=== PATIENT | female | born 1965 | race Caucasian/White ===

== ENCOUNTER 2017-12-07 12:40 | Emergency (ER) | payer MEDICAID, OTHER ==
[~2017-12-07] VITALS: Ht 165.1 cm; Wt 80.0 kg
[~2017-12-07 12:40] MED LIST: ADDE30TA PO; ARIP30 PO; CYMB60CA PO; IBUP-238 PO; TRAZ150T75 PO
[2017-12-07 12:45] VITALS: BP 182/90; PULSE 98; RESP 17; TEMP 98.7; O2SAT 100
[2017-12-07] MEDS ORDERED: ADDE30XR PO (13:08)
[2017-12-07] MEDS ORDERED: LISI10TA3 PO (13:08)
[2017-12-07] MEDS ORDERED: RANI300C PO (13:08)
--- NOTE | 2017-12-07 13:47 | PD ---
HPI Chief Complaint: Psychiatric Symptoms Time Seen by Provider: 13:38 Travel History International Travel<30 days: No Contact w/Intl Traveler<30days: No Traveled to known affect area: No History of Present Illness HPI 52-year-old female brought in under the [place] act for suicidal ideation by police. Patient states takes lisinopril for high blood pressure. He states he was to jump off the local originating we do ears, prevent her from doing that. She denies any other current medical issues. Patient is not very cooperative with questioning or exam. Allergic to codeine. PFSH Past Medical History Blood Disorders: No Anxiety: Yes Depression: Yes Cancer: Yes ("LIVER") Cardiovascular Problems: No Diabetes: No Diminished Hearing: No Endocrine: No Gastrointestinal Disorders: No Genitourinary: No Headaches: Yes Immune Disorder: No Implanted Vascular Access Dvce: No Musculoskeletal: No Neurologic: No Psychiatric: Yes Reproductive: No Respiratory: No ?: Not Menopausal: Yes : 6 Para: 3 Miscarriage: 1 : 2 Tubal Ligation: Yes Past Surgical History Gynecologic Surgery: Yes (TUBES TIED) Neurologic Surgery: Yes Social History Alcohol Use: Yes ("[place]" DAILY) Tobacco Use: Yes (1 PPD) Substance Use: Yes Allergies-Medications (Allergen,Severity, Reaction): Coded Allergies: codeine (Unverified Allergy, Severe, N/V, 12/07/17) Reported Meds & Prescriptions Reported Meds & Active Scripts Active Reported Ranitidine (Ranitidine HCl) 300 Mg Cap 300 Mg PO DAILY Lisinopril 10 Mg Tab 10 Mg PO DAILY Adderall Xr 24 HR (Amphetamine/Dextroamphetamine) 30 Mg Cap 30 Mg PO DAILY Once daily in the morning. Review of Systems ROS Limitations: Uncooperative, Refused, Combative General / Constitutional: No: Fever Eyes: No: Visual changes HENT: No: Headaches Cardiovascular: No: Chest Pain or Discomfort Respiratory: No: Shortness of Breath Gastrointestinal: No: Abdominal Pain Genitourinary: No: Dysuria Musculoskeletal: No: Pain Skin: No Rash Neurologic: No: Weakness Psychiatric: No: Depression Endocrine: No: Polydipsia Hematologic/Lymphatic: No: Easy Bruising Physical Exam Exam Limitations: Uncooperative, Refused, Combative Narrative GENERAL: Patient is tearful and frustrated as well as somewhat verbally combative. SKIN: Warm and dry. No obvious signs of trauma. HEAD: Atraumatic. Normocephalic. EYES: Pupils equal and round. No scleral icterus. No injection or drainage. ENT: No nasal bleeding or discharge. Mucous membranes pink and moist. Pharynx is clear NECK: Trachea midline. Supple CARDIOVASCULAR: Regular rate and rhythm. RESPIRATORY: No accessory muscle use. MUSCULOSKELETAL: Extremities without clubbing, cyanosis, or edema. No obvious deformities. NEUROLOGICAL: Awake and alert. No obvious cranial nerve deficits. Motor grossly within normal limits. Five out of 5 muscle strength in the arms and legs. Normal speech. PSYCHIATRIC: Appropriate mood and affect; insight and judgment normal. Data Data Last Documented VS Vital Signs Date Time Temp Pulse Resp B/P (MAP) Pulse Ox O2 Delivery O2 Flow Rate FiO2 12/07/17 12:45 98.7 98 17 182/90 (120) 100 Orders Orders Complete Blood Count With Diff (12/07/17 13:39) Comprehensive Metabolic Panel (12/07/17 13:39) Thyroid Stimulating Hormone (12/07/17 13:39) Urinalysis - C+S If Indicated (12/07/17 13:39) Psych Screen (12/07/17 13:39) Drug Screen, Random Urine (12/07/17 13:39) Alcohol (Ethanol) (12/07/17 13:39) MDM Medical Decision Making Medical Screen Exam Complete: Yes Emergency Medical Condition: Yes Medical Record Reviewed: Yes Differential Diagnosis [place]. Suicidal ideation. Depression. Narrative Course Patient is partially cooperative with history and exam. Psychiatric labs were ordered per protocol. Patient refuses all labs, but I feel that she is medically stable to go to [facility] at this time. Psych screen is ordered. Patient is medically cleared for psychiatric evaluation. Condition: Stable Urban Mckenna Dec 07, 2017 13:47
[2017-12-07 17:39] LABS: BASOPHIL % 0.6 % (0.0-2.0); EOSINOPHIL # 0.1 TH/MM3 (0-0.4); EOSINOPHIL % 1.4 % (0.0-4.0); HEMATOCRIT 41.5 % (35.0-46.0); HEMOGLOBIN 14.9 GM/DL (11.6-15.3); LYMPH % 42.3 % (9.0-44.0); LYMPHOCYTE # 3.4 TH/MM3 (1.0-4.8); MEAN CORPUSCULAR HEMOGLOBIN 33.9 PG (27.0-34.0); MEAN PLATELET VOLUME 7.7 FL (7.0-11.0); MONOCYTE # 0.6 TH/MM3 (0-0.9); NEUT % 48.7 % (16.0-70.0); PLATELET COUNT 279 TH/MM3 (150-450); RED BLOOD COUNT 4.41 MIL/MM3 (4.00-5.30); WHITE BLOOD COUNT 8.1 TH/MM3 (4.0-11.0)
[2017-12-07 17:56] LABS: ALBUMIN 3.4 GM/DL (3.4-5.0); ALT (GPT) 32 U/L (10-53); AST (GOT) 34 U/L (15-37); BICARBONATE 29.1 MEQ/L (21.0-32.0); BLOOD UREA NITROGEN 6 MG/DL (7-18); CALCIUM 8.2 MG/DL (8.5-10.1); CHLORIDE 108 MEQ/L (98-107); CREATININE 0.56 MG/DL (0.50-1.00); GLOMERULAR FILTRATION RATE 114 ML/MIN (>89); GLUCOSE,RANDOM 171 MG/DL (74-106); SODIUM (NA) 145 MEQ/L (136-145)
[2017-12-07 18:00] VITALS: BP 156/84; PULSE 80; RESP 16; TEMP 97.8; O2SAT 95
[2017-12-07 18:06] LABS: ALKALINE PHOSPHATASE 139 U/L (45-117); TOTAL BILIRUBIN ADULT 0.2 MG/DL (0.2-1.0); TOTAL PROTEIN 7.3 GM/DL (6.4-8.2)
[2017-12-07 20:34] VITALS: BP 181/90; PULSE 101; TEMP 98.8; O2SAT 95
[2017-12-07] MEDS ORDERED: POTASSIUM CHLORIDE 20 MEQ CONTROLLED RELEASE TAB PO ONE (23:15)
[2017-12-07 23:58] VITALS: BP 214/110; PULSE 88; RESP 18; TEMP 98.2; O2SAT 95
[2017-12-08] MEDS ORDERED: cloNIDine HCL 0.1 MG TAB PO ONE (00:15)
[2017-12-08] MEDS ORDERED: LISINOPRIL 10 MG TAB PO ONE (00:15)
[2017-12-08] MEDS ORDERED: POTASSIUM CHLORIDE 20 MEQ CONTROLLED RELEASE TAB PO ONE (01:00)
[2017-12-08 01:39] VITALS: BP 218/100; PULSE 78; RESP 18; O2SAT 95
[2017-12-08] MEDS ORDERED: LORazepam 2 MG/ML VIAL IM ONE (01:45)
[2017-12-08] MEDS ORDERED: ACETAMINOPHEN 325 MG TAB PO ONE (01:45)
[2017-12-08] MEDS ORDERED: cloNIDine HCL 0.2 MG TAB PO ONE (01:45)
[2017-12-08] MEDS ORDERED: ONDANSETRON ODT 4 MG TAB PO ONE (01:45)
[2017-12-08] MEDS ORDERED: PROMETHAZINE INJ 25 MG/ML VIAL IM ONE (01:45)
--- NOTE | 2017-12-08 01:46 | PD ---
Physical Exam Date Seen by Provider: Dec 08, 2017 Time Seen by Provider: 01:44 Data Data Last Documented VS Vital Signs Date Time Temp Pulse Resp B/P (MAP) Pulse Ox O2 Delivery O2 Flow Rate FiO2 12/08/17 01:39 78 18 () 95 Room Air 218/100 (139) 12/07/17 23:58 98.2 Orders Orders Psych Screen (12/07/17 13:39) Diet Regular Basic (12/07/17 Dinner) Complete Blood Count With Diff (12/07/17 17:08) Comprehensive Metabolic Panel (12/07/17 17:08) Thyroid Stimulating Hormone (12/07/17 17:08) Ed Urine Pregnancytest Poc (12/07/17 17:08) Drug Screen, Random Urine (12/07/17 17:08) Alcohol (Ethanol) (12/07/17 17:08) Potassium Chloride (Kcl) (12/07/17 23:15) Potassium Chloride (Kcl) (12/08/17 01:00) Clonidine (Catapres) (12/08/17 00:15) Lisinopril (Prinivil) (12/08/17 00:15) Lisinopril (Prinivil) (12/08/17 09:00) Diet Regular Basic (12/08/17 Breakfast) Ondansetron Odt (Zofran Odt) (12/08/17 01:45) Acetaminophen (Tylenol) (12/08/17 01:45) Lorazepam Inj (Ativan Inj) (12/08/17 01:45) Clonidine (Catapres) (12/08/17 01:45) Promethazine Inj (Phenergan Inj) (12/08/17 01:45) Labs Laboratory Tests Test 12/07/17 17:15 12/07/17 20:31 White Blood Count 8.1 TH/MM3 Red Blood Count 4.41 MIL/MM3 Hemoglobin 14.9 GM/DL Hematocrit 41.5 % Mean Corpuscular Volume 94.0 FL Mean Corpuscular Hemoglobin 33.9 PG Mean Corpuscular Hemoglobin Concent 36.0 % Red Cell Distribution Width 13.0 % Platelet Count 279 TH/MM3 Mean Platelet Volume 7.7 FL Neutrophils (%) (Auto) 48.7 % Lymphocytes (%) (Auto) 42.3 % Monocytes (%) (Auto) 7.0 % Eosinophils (%) (Auto) 1.4 % Basophils (%) (Auto) 0.6 % Neutrophils # (Auto) 4.0 TH/MM3 Lymphocytes # (Auto) 3.4 TH/MM3 Monocytes # (Auto) 0.6 TH/MM3 Eosinophils # (Auto) 0.1 TH/MM3 Basophils # (Auto) 0.0 TH/MM3 CBC Comment AUTO DIFF Differential Comment AUTO DIFF CONFIRMED Blood Urea Nitrogen 6 MG/DL Creatinine 0.56 MG/DL Random Glucose 171 MG/DL Total Protein 7.3 GM/DL Albumin 3.4 GM/DL Calcium Level 8.2 MG/DL Alkaline Phosphatase 139 U/L Aspartate Amino Transf (AST/SGOT) 34 U/L Alanine Aminotransferase (ALT/SGPT) 32 U/L Total Bilirubin 0.2 MG/DL Sodium Level 145 MEQ/L Potassium Level 3.0 MEQ/L Chloride Level 108 MEQ/L Carbon Dioxide Level 29.1 MEQ/L Anion Gap 8 MEQ/L Estimat Glomerular Filtration Rate 114 ML/MIN Thyroid Stimulating Hormone 3rd Gen 0.456 uIU/ML Ethyl Alcohol Level 190 MG/DL Urine Opiates Screen NEG Urine Barbiturates Screen NEG Urine Amphetamines Screen NEG Urine Benzodiazepines Screen NEG Urine Cocaine Screen NEG Urine Cannabinoids Screen NEG MDM Medical Record Reviewed: Yes Supervised Visit with ACE: No Narrative Course I was asked to treat the patient's hypertension and hypokalemia. She had been given p.o. potassium and lisinopril The patient has vomited approximately 1-1/2 hours later. She still has elevated blood pressure. She will be given 25 mg of Phenergan IM, Ativan 1 mg IM, and clonidine 0.2 mg p.o. Condition: Stable Kevin Young Dec 08, 2017 01:46
[2017-12-08 04:34] VITALS: BP 118/65; PULSE 74; RESP 17; TEMP 98.4; O2SAT 95
[2017-12-08 05:38] VITALS: BP 121/63; PULSE 72; RESP 17; TEMP 99; O2SAT 98
[2017-12-08] MEDS ORDERED: LISINOPRIL 10 MG TAB PO SCH (09:00)
[2017-12-08 09:04] VITALS: BP 154/82; PULSE 72; RESP 16; TEMP 98.8; O2SAT 97
[2017-12-08 12:35] VITALS: BP 133/78; PULSE 88; RESP 16; O2SAT 97
--- NOTE | 2017-12-08 12:57 | PD ---
Physical Exam Date Seen by Provider: Dec 08, 2017 Time Seen by Provider: 12:56 Narrative 52-year-old female patient previously medically cleared for psychiatric evaluation has been seen by psychiatric services and felt to be worthy of transfer to [facility]. Patient remains medically stable at this time. Data Data Last Documented VS Vital Signs Date Time Temp Pulse Resp B/P (MAP) Pulse Ox O2 Delivery O2 Flow Rate FiO2 12/08/17 12:35 88 16 133/78 (96) 97 12/08/17 09:04 98.8 12/08/17 05:38 Room Air Orders Orders Psych Screen (12/07/17 13:39) Diet Regular Basic (12/07/17 Dinner) Complete Blood Count With Diff (12/07/17 17:08) Comprehensive Metabolic Panel (12/07/17 17:08) Thyroid Stimulating Hormone (12/07/17 17:08) Ed Urine Pregnancytest Poc (12/07/17 17:08) Drug Screen, Random Urine (12/07/17 17:08) Alcohol (Ethanol) (12/07/17 17:08) Potassium Chloride (Kcl) (12/07/17 23:15) Potassium Chloride (Kcl) (12/08/17 01:00) Clonidine (Catapres) (12/08/17 00:15) Lisinopril (Prinivil) (12/08/17 00:15) Lisinopril (Prinivil) (12/08/17 09:00) Diet Regular Basic (12/08/17 Breakfast) Ondansetron Odt (Zofran Odt) (12/08/17 01:45) Acetaminophen (Tylenol) (12/08/17 01:45) Lorazepam Inj (Ativan Inj) (12/08/17 01:45) Clonidine (Catapres) (12/08/17 01:45) Promethazine Inj (Phenergan Inj) (12/08/17 01:45) Diet Regular Basic (12/08/17 Lunch) Labs Laboratory Tests Test 12/07/17 17:15 12/07/17 20:31 White Blood Count 8.1 TH/MM3 Red Blood Count 4.41 MIL/MM3 Hemoglobin 14.9 GM/DL Hematocrit 41.5 % Mean Corpuscular Volume 94.0 FL Mean Corpuscular Hemoglobin 33.9 PG Mean Corpuscular Hemoglobin Concent 36.0 % Red Cell Distribution Width 13.0 % Platelet Count 279 TH/MM3 Mean Platelet Volume 7.7 FL Neutrophils (%) (Auto) 48.7 % Lymphocytes (%) (Auto) 42.3 % Monocytes (%) (Auto) 7.0 % Eosinophils (%) (Auto) 1.4 % Basophils (%) (Auto) 0.6 % Neutrophils # (Auto) 4.0 TH/MM3 Lymphocytes # (Auto) 3.4 TH/MM3 Monocytes # (Auto) 0.6 TH/MM3 Eosinophils # (Auto) 0.1 TH/MM3 Basophils # (Auto) 0.0 TH/MM3 CBC Comment AUTO DIFF Differential Comment AUTO DIFF CONFIRMED Blood Urea Nitrogen 6 MG/DL Creatinine 0.56 MG/DL Random Glucose 171 MG/DL Total Protein 7.3 GM/DL Albumin 3.4 GM/DL Calcium Level 8.2 MG/DL Alkaline Phosphatase 139 U/L Aspartate Amino Transf (AST/SGOT) 34 U/L Alanine Aminotransferase (ALT/SGPT) 32 U/L Total Bilirubin 0.2 MG/DL Sodium Level 145 MEQ/L Potassium Level 3.0 MEQ/L Chloride Level 108 MEQ/L Carbon Dioxide Level 29.1 MEQ/L Anion Gap 8 MEQ/L Estimat Glomerular Filtration Rate 114 ML/MIN Thyroid Stimulating Hormone 3rd Gen 0.456 uIU/ML Ethyl Alcohol Level 190 MG/DL Urine Opiates Screen NEG Urine Barbiturates Screen NEG Urine Amphetamines Screen NEG Urine Benzodiazepines Screen NEG Urine Cocaine Screen NEG Urine Cannabinoids Screen NEG MDM Medical Record Reviewed: Yes Supervised Visit with ACE: Yes Narrative Course 52-year-old female patient previously medically cleared for psychiatric evaluation has been seen by psychiatric services and felt to be worthy of transfer to the [facility]. Patient remains medically stable at this time. Disposition: 65 DISC TO PSYCH CARE FACILITY Condition: Stable Urban Mckenna Dec 08, 2017 12:57
== END 2017-12-08 14:19 ==
LOC: NEPD 12:40 → NEPJ 12-08 14:19
DX: R45.851 Suicidal ideations (principal); R11.10 Vomiting, unspecified; F41.9 Anxiety disorder, unspecified; F32.9 Major depressive disorder, single episode, unspecified; I10 Essential (primary) hypertension; E87.6 Hypokalemia; F17.200 Nicotine dependence, unspecified, uncomplicated; Z79.899 Other long term (current) drug therapy; Z88.5 Allergy status to narcotic agent
CPT/HCPCS: 80053; 80307; 84443; 85025; 96372; 99285; J2060; J2550

== ENCOUNTER 2018-08-04 18:37 | Inpatient (IN) ==
[2018-08-04] MEDS ORDERED: Sod Chloride 0.9% Inj 1,000 ML IV.SIG ONE (19:18)
[2018-08-04] MEDS ORDERED: Dextrose 50% in Water 50 ML Vial IV.PUSH PRN (19:18)
--- NOTE | 2018-08-04 19:18 | ED ---
HPI General Chief complaint: Diabetic Stated complaint: anxiety Time Seen by Provider: 08/04/18 19:14 Source: patient Mode of arrival: ambulatory Limitations: no limitations History of Present Illness HPI narrative: Patient states that she is out of her insulin and is concerned about her elevated glucose.... Patient was recently diagnosed diabetic in [facility], where she was started on metformin and insulin. Now since she was released from [facility] she no longer has been able to pay for her prescriptions. And this was approximately 4 days ago. Patient denies any chest pain shortness of breath nausea vomiting diarrhea. Related Data Home Medications Medication Instructions Recorded Confirmed lisinopril 10 mg PO DAILY 08/04/18 08/04/18 Allergies Allergy/AdvReac Type Severity Reaction Status Date / Time codeine Allergy Severe N/V Verified 08/04/18 19:22 Review of Systems ROS: all other systems reviewed are negative PMFSH History History Provided By: Patient Medical History Medical History Diabetes (Acute) High blood pressure (Acute) Social History Social History Substance History: No History of Abuse Second Hand Smoke Exposure: No Smoking Status: Never smoker How Often Do You Have a Drink Containing Alcohol: Never Recent Travel in [facility] within the Last 8 Weeks: No Recent Out of Country Travel within the Last 8 Weeks: No Exam Narrative Exam Narrative: GENERAL: female in moderate distress. SKIN: Warm and dry. HEAD: Atraumatic. Normocephalic. EYES: Pupils equal and round. No scleral icterus. No injection or drainage. ENT: No nasal bleeding or discharge. Mucous membranes pink and moist. NECK: Trachea midline. No JVD. CARDIOVASCULAR: tachycardic rate and rhythm. no rubs or gallops RESPIRATORY: No accessory muscle use. Clear to auscultation. tachypneic but with volume equal bilaterally. GASTROINTESTINAL: Abdomen soft, non-tender, nondistended. No rebound or guarding MUSCULOSKELETAL: Extremities without clubbing, cyanosis, or edema. No obvious deformities. NEUROLOGICAL: Awake and alert. No obvious cranial nerve deficits. Motor grossly within normal limits. Five out of 5 muscle strength in the arms and legs. Normal speech. PSYCHIATRIC: Appropriate mood and affect; insight and judgment normal. Course Initial Documented Vital Signs Temperature 98.3 F 08/04/18 18:55 Pulse Rate 96 H 08/04/18 18:55 Respiratory Rate 20 08/04/18 18:55 Blood Pressure 114/56 L 08/04/18 18:55 Pulse Oximetry 100 08/04/18 18:55 Last Documented Vital Signs Temperature 97.5 F L 08/05/18 22:39 Pulse Rate 85 08/05/18 22:39 Respiratory Rate 20 08/05/18 22:39 Blood Pressure 112/55 L 08/05/18 22:39 Pulse Oximetry 93 L 08/05/18 22:39 Critical Care Time Critical Care Time: Yes Total Critical Care Time: 60 Attestation: Aggregate critical care time was 60 minutes. Time to perform other separately billable procedures was not included in the critical care time. My time did not include minutes spent treating any other patients simultaneously or on activities that did not directly contribute to the patient's treatment. The services I provided to this patient were to treat and/or prevent clinically significant deterioration that could result in: [] I provided critical care services requiring my management, as noted below: Chart data review, documentation time, medication orders and management, vital sign assessments/reviewing monitor data, ordering and reviewing lab tests, ordering and interpreting/reviewing x-rays and diagnostic studies, care of the patient and discussion of the patient with the admitting physicians. Medical Decision Making MDM Narrative Medical Screen Exam Complete: Yes Emergency Medical Condition: Yes Differential Diagnosis Differential Diagnosis: DKA versus hyperglycemia versus hyperosmolar syndrome Medical Records Medical records reviewed: Yes I reviewed the patient's medical records. Last note reviewed was on December 08 at which time the patient was evaluated by psychiatry and transferred to the [facility]. Lab Data Result diagrams: 08/05/18 08:21 08/05/18 08:18 Lab Results 08/04/18 08/04/18 08/04/18 Range/Units 19:22 19:35 20:55 WBC 32.4 H (4.0-11.0) th/mm3 RBC 4.48 (4.00-5.30) mil/mm3 Hgb 14.4 (11.6-15.3) gm/dL Hct 46.2 H (35.0-46.0) % MCV 103.1 H (80.0-100.0) fL MCH 32.2 (27.0-34.0) pg MCHC 31.3 L (32.0-36.0) % RDW 13.5 (11.6-17.2) % Plt Count 376 (150-450) th/mm3 MPV 10.1 (7.0-11.0) fL Prelim Diff (Auto) Slide review pending Neut % (Auto) 80.2 H (16.0-70.0) % Lymph % (Auto) 10.5 (9.0-44.0) % [place] % (Auto) 8.1 H (0.0-8.0) % Eos % (Auto) 0.1 (0.0-4.0) % Baso % (Auto) 1.1 (0.0-2.0) % Neut # (Auto) 26.0 H (1.8-7.7) th/mm3 Lymph # (Auto) 3.4 (1.0-4.8) th/mm3 [place] # (Auto) 2.6 H (0.0-0.9) th/mm3 Eos # (Auto) 0.0 (0.0-0.4) th/mm3 Baso # (Auto) 0.3 H (0.0-0.2) th/mm3 WBC Differential Manual diff final Seg Neuts % (Manual) 72 H (16-70) % Band Neuts % (Manual) 13 H (0-6) % Lymphocytes % (Manual) 7 L (9-44) % Monocytes % (Manual) 8 (0-8) % Abs Neuts (Manual) 27.5 H (1.8-7.7) th/mm3 Differential Comment . Toxic Vacuolation Present H (None) Platelet Estimate High H (Normal) Platelet Morphology Normal (Normal) Acanthocytes (Spur) Occ H (None) Puncture Site Iv Patient Temperature 98.6 VBG pH 7.04 L* (7.360-7.400) VBG pCO2 21 L (44-48) mmHG VBG pO2 51 H (35-40) mmHG VBG HCO3 5 L* (22-26) mmol/L VBG O2 Saturation 75 (70-76) % VBG O2 Content 14.9 (9.0-17.0) Vol % VBG Base Excess -23.3 L (-2-2) mmol/L VBG Carboxyhemoglobin 1.6 (0-4) % VBG Methemoglobin 0.9 (0-2) % Hemoglobin 14.1 (12.0-16.0) G/DL O2 Delivery Device Room air Critical Value Yes Sodium 121 L* (136-145) meq/L Potassium 4.6 (3.5-5.1) meq/L Chloride 85 L (98-107) meq/L Carbon Dioxide 6.5 L (21.0-32.0) meq/L Anion Gap 30 H (5-15) meq/L BUN 55 H (7-18) mg/dL Creatinine 2.27 H (0.50-1.00) mg/dL Estimated GFR 23 L (>89) mL/min POC Glucose (68-110) mg/dl Random Glucose 893 H* (74-106) mg/dL Calcium 8.2 L (8.5-10.1) mg/dL Phosphorus (2.5-4.9) mg/dL Magnesium (1.5-2.5) mg/dL Total Bilirubin 0.7 (0.2-1.0) mg/dL AST 15 (15-37) U/L ALT 21 (10-53) U/L Alkaline Phosphatase 134 H (45-117) U/L Troponin I Less than 0.02 L (0.02-0.05) ng/mL Total Protein 7.2 (6.4-8.2) g/dL Albumin 3.6 (3.4-5.0) g/dL Beta-Hydroxybutyric Acd 12.59 H (0.00-0.39) mmol/L Urine Color (Yellw/Straw) Urine Clarity (Clear) Urine pH (5.0-8.5) Ur Specific [place] (1.002-1.035) Urine Protein (Neg-Trace) mg/dL Urine Glucose (UA) (Negative) mg/dL Urine Ketones (Negative) mg/dL Urine Occult Blood (Negative) Urine Nitrate (Negative) Urine Bilirubin (Negative) Urine Urobilinogen (Less than 2) mg/dL Ur Leukocyte Esterase (Negative) Urine RBC (0-3) /hpf Urine WBC (0-5) /hpf Ur Squamous Epith Cells (0-5) /hpf Urine Mucus (Occasional) /lpf Micro UA Comment Ur Microscopic Review Urine Culture Comments Nasal Screen MRSA (PCR) (Negative) Group B Strep (PCR) 08/05/18 08/05/18 08/05/18 Range/Units 00:03 00:10 01:00 WBC (4.0-11.0) th/mm3 RBC (4.00-5.30) mil/mm3 Hgb (11.6-15.3) gm/dL Hct (35.0-46.0) % MCV (80.0-100.0) fL MCH (27.0-34.0) pg MCHC (32.0-36.0) % RDW (11.6-17.2) % Plt Count (150-450) th/mm3 MPV (7.0-11.0) fL Prelim Diff (Auto) Neut % (Auto) (16.0-70.0) % Lymph % (Auto) (9.0-44.0) % [place] % (Auto) (0.0-8.0) % Eos % (Auto) (0.0-4.0) % Baso % (Auto) (0.0-2.0) % Neut # (Auto) (1.8-7.7) th/mm3 Lymph # (Auto) (1.0-4.8) th/mm3 [place] # (Auto) (0.0-0.9) th/mm3 Eos # (Auto) (0.0-0.4) th/mm3 Baso # (Auto) (0.0-0.2) th/mm3 WBC Differential Seg Neuts % (Manual) (16-70) % Band Neuts % (Manual) (0-6) % Lymphocytes % (Manual) (9-44) % Monocytes % (Manual) (0-8) % Abs Neuts (Manual) (1.8-7.7) th/mm3 Differential Comment Toxic Vacuolation (None) Platelet Estimate (Normal) Platelet Morphology (Normal) Acanthocytes (Spur) (None) Puncture Site Patient Temperature VBG pH (7.360-7.400) VBG pCO2 (44-48) mmHG VBG pO2 (35-40) mmHG VBG HCO3 (22-26) mmol/L VBG O2 Saturation (70-76) % VBG O2 Content (9.0-17.0) Vol % VBG Base Excess (-2-2) mmol/L VBG Carboxyhemoglobin (0-4) % VBG Methemoglobin (0-2) % Hemoglobin (12.0-16.0) G/DL O2 Delivery Device Critical Value Sodium (136-145) meq/L Potassium (3.5-5.1) meq/L Chloride (98-107) meq/L Carbon Dioxide (21.0-32.0) meq/L Anion Gap (5-15) meq/L BUN (7-18) mg/dL Creatinine (0.50-1.00) mg/dL Estimated GFR (>89) mL/min POC Glucose Greater than 600 H* (68-110) mg/dl Random Glucose 612 H* D (74-106) mg/dL Calcium (8.5-10.1) mg/dL Phosphorus (2.5-4.9) mg/dL Magnesium (1.5-2.5) mg/dL Total Bilirubin (0.2-1.0) mg/dL AST (15-37) U/L ALT (10-53) U/L Alkaline Phosphatase (45-117) U/L Troponin I (0.02-0.05) ng/mL Total Protein (6.4-8.2) g/dL Albumin (3.4-5.0) g/dL Beta-Hydroxybutyric Acd (0.00-0.39) mmol/L Urine Color (Yellw/Straw) Urine Clarity (Clear) Urine pH (5.0-8.5) Ur Specific [place] (1.002-1.035) Urine Protein (Neg-Trace) mg/dL Urine Glucose (UA) (Negative) mg/dL Urine Ketones (Negative) mg/dL Urine Occult Blood (Negative) Urine Nitrate (Negative) Urine Bilirubin (Negative) Urine Urobilinogen (Less than 2) mg/dL Ur Leukocyte Esterase (Negative) Urine RBC (0-3) /hpf Urine WBC (0-5) /hpf Ur Squamous Epith Cells (0-5) /hpf Urine Mucus (Occasional) /lpf Micro UA Comment Ur Microscopic Review Urine Culture Comments Nasal Screen MRSA (PCR) Not detected (Negative) Group B Strep (PCR) 08/05/18 08/05/18 08/05/18 Range/Units 02:05 02:08 03:05 WBC (4.0-11.0) th/mm3 RBC (4.00-5.30) mil/mm3 Hgb (11.6-15.3) gm/dL Hct (35.0-46.0) % MCV (80.0-100.0) fL MCH (27.0-34.0) pg MCHC (32.0-36.0) % RDW (11.6-17.2) % Plt Count (150-450) th/mm3 MPV (7.0-11.0) fL Prelim Diff (Auto) Neut % (Auto) (16.0-70.0) % Lymph % (Auto) (9.0-44.0) % [place] % (Auto) (0.0-8.0) % Eos % (Auto) (0.0-4.0) % Baso % (Auto) (0.0-2.0) % Neut # (Auto) (1.8-7.7) th/mm3 Lymph # (Auto) (1.0-4.8) th/mm3 [place] # (Auto) (0.0-0.9) th/mm3 Eos # (Auto) (0.0-0.4) th/mm3 Baso # (Auto) (0.0-0.2) th/mm3 WBC Differential Seg Neuts % (Manual) (16-70) % Band Neuts % (Manual) (0-6) % Lymphocytes % (Manual) (9-44) % Monocytes % (Manual) (0-8) % Abs Neuts (Manual) (1.8-7.7) th/mm3 Differential Comment Toxic Vacuolation (None) Platelet Estimate (Normal) Platelet Morphology (Normal) Acanthocytes (Spur) (None) Puncture Site Patient Temperature VBG pH (7.360-7.400) VBG pCO2 (44-48) mmHG VBG pO2 (35-40) mmHG VBG HCO3 (22-26) mmol/L VBG O2 Saturation (70-76) % VBG O2 Content (9.0-17.0) Vol % VBG Base Excess (-2-2) mmol/L VBG Carboxyhemoglobin (0-4) % VBG Methemoglobin (0-2) % Hemoglobin (12.0-16.0) G/DL O2 Delivery Device Critical Value Sodium (136-145) meq/L Potassium (3.5-5.1) meq/L Chloride (98-107) meq/L Carbon Dioxide (21.0-32.0) meq/L Anion Gap (5-15) meq/L BUN (7-18) mg/dL Creatinine (0.50-1.00) mg/dL Estimated GFR (>89) mL/min POC Glucose 519 H* 493 H* (68-110) mg/dl Random Glucose (74-106) mg/dL Calcium (8.5-10.1) mg/dL Phosphorus (2.5-4.9) mg/dL Magnesium (1.5-2.5) mg/dL Total Bilirubin (0.2-1.0) mg/dL AST (15-37) U/L ALT (10-53) U/L Alkaline Phosphatase (45-117) U/L Troponin I (0.02-0.05) ng/mL Total Protein (6.4-8.2) g/dL Albumin (3.4-5.0) g/dL Beta-Hydroxybutyric Acd (0.00-0.39) mmol/L Urine Color Straw (Yellw/Straw) Urine Clarity Clear (Clear) Urine pH 5.0 (5.0-8.5) Ur Specific [place] 1.016 (1.002-1.035) Urine Protein Negative (Neg-Trace) mg/dL Urine Glucose (UA) 500 or greater (Negative) mg/dL Urine Ketones 80 or greater H (Negative) mg/dL Urine Occult Blood Moderate H (Negative) Urine Nitrate Negative (Negative) Urine Bilirubin Negative (Negative) Urine Urobilinogen Less than 2 (Less than 2) mg/dL Ur Leukocyte Esterase Negative (Negative) Urine RBC Less than 1 (0-3) /hpf Urine WBC Less than 1 (0-5) /hpf Ur Squamous Epith Cells <1 (0-5) /hpf Urine Mucus Few H (Occasional) /lpf Micro UA Comment Culture not ind Ur Microscopic Review Not Reportable Urine Culture Comments Culture not ind Nasal Screen MRSA (PCR) (Negative) Group B Strep (PCR) 08/05/18 08/05/18 08/05/18 Range/Units 04:18 04:47 05:14 WBC (4.0-11.0) th/mm3 RBC (4.00-5.30) mil/mm3 Hgb (11.6-15.3) gm/dL Hct (35.0-46.0) % MCV (80.0-100.0) fL MCH (27.0-34.0) pg MCHC (32.0-36.0) % RDW (11.6-17.2) % Plt Count (150-450) th/mm3 MPV (7.0-11.0) fL Prelim Diff (Auto) Neut % (Auto) (16.0-70.0) % Lymph % (Auto) (9.0-44.0) % [place] % (Auto) (0.0-8.0) % Eos % (Auto) (0.0-4.0) % Baso % (Auto) (0.0-2.0) % Neut # (Auto) (1.8-7.7) th/mm3 Lymph # (Auto) (1.0-4.8) th/mm3 [place] # (Auto) (0.0-0.9) th/mm3 Eos # (Auto) (0.0-0.4) th/mm3 Baso # (Auto) (0.0-0.2) th/mm3 WBC Differential Seg Neuts % (Manual) (16-70) % Band Neuts % (Manual) (0-6) % Lymphocytes % (Manual) (9-44) % Monocytes % (Manual) (0-8) % Abs Neuts (Manual) (1.8-7.7) th/mm3 Differential Comment Toxic Vacuolation (None) Platelet Estimate (Normal) Platelet Morphology (Normal) Acanthocytes (Spur) (None) Puncture Site Patient Temperature VBG pH (7.360-7.400) VBG pCO2 (44-48) mmHG VBG pO2 (35-40) mmHG VBG HCO3 (22-26) mmol/L VBG O2 Saturation (70-76) % VBG O2 Content (9.0-17.0) Vol % VBG Base Excess (-2-2) mmol/L VBG Carboxyhemoglobin (0-4) % VBG Methemoglobin (0-2) % Hemoglobin (12.0-16.0) G/DL O2 Delivery Device Critical Value Sodium 135 L D (136-145) meq/L Potassium 3.6 D (3.5-5.1) meq/L Chloride 102 D (98-107) meq/L Carbon Dioxide 19.0 L D (21.0-32.0) meq/L Anion Gap 14 (5-15) meq/L BUN 38 H (7-18) mg/dL Creatinine 1.37 H (0.50-1.00) mg/dL Estimated GFR 40 L (>89) mL/min POC Glucose 368 H 243 H (68-110) mg/dl Random Glucose 238 H D (74-106) mg/dL Calcium 8.4 L (8.5-10.1) mg/dL Phosphorus (2.5-4.9) mg/dL Magnesium (1.5-2.5) mg/dL Total Bilirubin (0.2-1.0) mg/dL AST (15-37) U/L ALT (10-53) U/L Alkaline Phosphatase (45-117) U/L Troponin I (0.02-0.05) ng/mL Total Protein (6.4-8.2) g/dL Albumin (3.4-5.0) g/dL Beta-Hydroxybutyric Acd 2.86 H D (0.00-0.39) mmol/L Urine Color (Yellw/Straw) Urine Clarity (Clear) Urine pH (5.0-8.5) Ur Specific [place] (1.002-1.035) Urine Protein (Neg-Trace) mg/dL Urine Glucose (UA) (Negative) mg/dL Urine Ketones (Negative) mg/dL Urine Occult Blood (Negative) Urine Nitrate (Negative) Urine Bilirubin (Negative) Urine Urobilinogen (Less than 2) mg/dL Ur Leukocyte Esterase (Negative) Urine RBC (0-3) /hpf Urine WBC (0-5) /hpf Ur Squamous Epith Cells (0-5) /hpf Urine Mucus (Occasional) /lpf Micro UA Comment Ur Microscopic Review Urine Culture Comments Nasal Screen MRSA (PCR) (Negative) Group B Strep (PCR) 08/05/18 08/05/18 08/05/18 Range/Units 06:13 07:51 08:18 WBC (4.0-11.0) th/mm3 RBC (4.00-5.30) mil/mm3 Hgb (11.6-15.3) gm/dL Hct (35.0-46.0) % MCV (80.0-100.0) fL MCH (27.0-34.0) pg MCHC (32.0-36.0) % RDW (11.6-17.2) % Plt Count (150-450) th/mm3 MPV (7.0-11.0) fL Prelim Diff (Auto) Neut % (Auto) (16.0-70.0) % Lymph % (Auto) (9.0-44.0) % [place] % (Auto) (0.0-8.0) % Eos % (Auto) (0.0-4.0) % Baso % (Auto) (0.0-2.0) % Neut # (Auto) (1.8-7.7) th/mm3 Lymph # (Auto) (1.0-4.8) th/mm3 [place] # (Auto) (0.0-0.9) th/mm3 Eos # (Auto) (0.0-0.4) th/mm3 Baso # (Auto) (0.0-0.2) th/mm3 WBC Differential Seg Neuts % (Manual) (16-70) % Band Neuts % (Manual) (0-6) % Lymphocytes % (Manual) (9-44) % Monocytes % (Manual) (0-8) % Abs Neuts (Manual) (1.8-7.7) th/mm3 Differential Comment Toxic Vacuolation (None) Platelet Estimate (Normal) Platelet Morphology (Normal) Acanthocytes (Spur) (None) Puncture Site Patient Temperature VBG pH (7.360-7.400) VBG pCO2 (44-48) mmHG VBG pO2 (35-40) mmHG VBG HCO3 (22-26) mmol/L VBG O2 Saturation (70-76) % VBG O2 Content (9.0-17.0) Vol % VBG Base Excess (-2-2) mmol/L VBG Carboxyhemoglobin (0-4) % VBG Methemoglobin (0-2) % Hemoglobin (12.0-16.0) G/DL O2 Delivery Device Critical Value Sodium Cancelled (136-145) meq/L Potassium Cancelled (3.5-5.1) meq/L Chloride Cancelled (98-107) meq/L Carbon Dioxide Cancelled (21.0-32.0) meq/L Anion Gap Cancelled (5-15) meq/L BUN Cancelled (7-18) mg/dL Creatinine Cancelled (0.50-1.00) mg/dL Estimated GFR Cancelled (>89) mL/min POC Glucose 206 H 210 H (68-110) mg/dl Random Glucose Cancelled (74-106) mg/dL Calcium Cancelled (8.5-10.1) mg/dL Phosphorus (2.5-4.9) mg/dL Magnesium 2.2 (1.5-2.5) mg/dL Total Bilirubin (0.2-1.0) mg/dL AST (15-37) U/L ALT (10-53) U/L Alkaline Phosphatase (45-117) U/L Troponin I (0.02-0.05) ng/mL Total Protein (6.4-8.2) g/dL Albumin (3.4-5.0) g/dL Beta-Hydroxybutyric Acd (0.00-0.39) mmol/L Urine Color (Yellw/Straw) Urine Clarity (Clear) Urine pH (5.0-8.5) Ur Specific [place] (1.002-1.035) Urine Protein (Neg-Trace) mg/dL Urine Glucose (UA) (Negative) mg/dL Urine Ketones (Negative) mg/dL Urine Occult Blood (Negative) Urine Nitrate (Negative) Urine Bilirubin (Negative) Urine Urobilinogen (Less than 2) mg/dL Ur Leukocyte Esterase (Negative) Urine RBC (0-3) /hpf Urine WBC (0-5) /hpf Ur Squamous Epith Cells (0-5) /hpf Urine Mucus (Occasional) /lpf Micro UA Comment Ur Microscopic Review Urine Culture Comments Nasal Screen MRSA (PCR) (Negative) Group B Strep (PCR) 08/05/18 08/05/18 08/05/18 Range/Units 08:18 08:21 09:07 WBC 22.2 H (4.0-11.0) th/mm3 RBC 4.06 (4.00-5.30) mil/mm3 Hgb 13.0 (11.6-15.3) gm/dL Hct 36.8 (35.0-46.0) % MCV 90.7 D (80.0-100.0) fL MCH 32.0 (27.0-34.0) pg MCHC 35.3 (32.0-36.0) % RDW 12.3 (11.6-17.2) % Plt Count 254 D (150-450) th/mm3 MPV 8.6 (7.0-11.0) fL Prelim Diff (Auto) Neut % (Auto) 85.4 H (16.0-70.0) % Lymph % (Auto) 7.0 L (9.0-44.0) % [place] % (Auto) 7.4 (0.0-8.0) % Eos % (Auto) 0.0 (0.0-4.0) % Baso % (Auto) 0.2 (0.0-2.0) % Neut # (Auto) 18.9 H (1.8-7.7) th/mm3 Lymph # (Auto) 1.6 (1.0-4.8) th/mm3 [place] # (Auto) 1.6 H (0.0-0.9) th/mm3 Eos # (Auto) 0.0 (0.0-0.4) th/mm3 Baso # (Auto) 0.0 (0.0-0.2) th/mm3 WBC Differential . Seg Neuts % (Manual) (16-70) % Band Neuts % (Manual) (0-6) % Lymphocytes % (Manual) (9-44) % Monocytes % (Manual) (0-8) % Abs Neuts (Manual) (1.8-7.7) th/mm3 Differential Comment Auto diff final Toxic Vacuolation (None) Platelet Estimate (Normal) Platelet Morphology (Normal) Acanthocytes (Spur) (None) Puncture Site Patient Temperature VBG pH (7.360-7.400) VBG pCO2 (44-48) mmHG VBG pO2 (35-40) mmHG VBG HCO3 (22-26) mmol/L VBG O2 Saturation (70-76) % VBG O2 Content (9.0-17.0) Vol % VBG Base Excess (-2-2) mmol/L VBG Carboxyhemoglobin (0-4) % VBG Methemoglobin (0-2) % Hemoglobin (12.0-16.0) G/DL O2 Delivery Device Critical Value Sodium 137 (136-145) meq/L Potassium 3.9 (3.5-5.1) meq/L Chloride 107 (98-107) meq/L Carbon Dioxide 17.9 L (21.0-32.0) meq/L Anion Gap 12 (5-15) meq/L BUN 32 H (7-18) mg/dL Creatinine 1.15 H (0.50-1.00) mg/dL Estimated GFR 49 L (>89) mL/min POC Glucose 150 H (68-110) mg/dl Random Glucose 180 H (74-106) mg/dL Calcium 8.5 (8.5-10.1) mg/dL Phosphorus 1.6 L (2.5-4.9) mg/dL Magnesium (1.5-2.5) mg/dL Total Bilirubin 0.8 (0.2-1.0) mg/dL AST 31 (15-37) U/L ALT 23 (10-53) U/L Alkaline Phosphatase 124 H (45-117) U/L Troponin I (0.02-0.05) ng/mL Total Protein 7.4 (6.4-8.2) g/dL Albumin 3.8 (3.4-5.0) g/dL Beta-Hydroxybutyric Acd (0.00-0.39) mmol/L Urine Color (Yellw/Straw) Urine Clarity (Clear) Urine pH (5.0-8.5) Ur Specific [place] (1.002-1.035) Urine Protein (Neg-Trace) mg/dL Urine Glucose (UA) (Negative) mg/dL Urine Ketones (Negative) mg/dL Urine Occult Blood (Negative) Urine Nitrate (Negative) Urine Bilirubin (Negative) Urine Urobilinogen (Less than 2) mg/dL Ur Leukocyte Esterase (Negative) Urine RBC (0-3) /hpf Urine WBC (0-5) /hpf Ur Squamous Epith Cells (0-5) /hpf Urine Mucus (Occasional) /lpf Micro UA Comment Ur Microscopic Review Urine Culture Comments Nasal Screen MRSA (PCR) (Negative) Group B Strep (PCR) 08/05/18 08/05/18 08/05/18 Range/Units 09:46 11:16 12:36 WBC (4.0-11.0) th/mm3 RBC (4.00-5.30) mil/mm3 Hgb (11.6-15.3) gm/dL Hct (35.0-46.0) % MCV (80.0-100.0) fL MCH (27.0-34.0) pg MCHC (32.0-36.0) % RDW (11.6-17.2) % Plt Count (150-450) th/mm3 MPV (7.0-11.0) fL Prelim Diff (Auto) Neut % (Auto) (16.0-70.0) % Lymph % (Auto) (9.0-44.0) % [place] % (Auto) (0.0-8.0) % Eos % (Auto) (0.0-4.0) % Baso % (Auto) (0.0-2.0) % Neut # (Auto) (1.8-7.7) th/mm3 Lymph # (Auto) (1.0-4.8) th/mm3 [place] # (Auto) (0.0-0.9) th/mm3 Eos # (Auto) (0.0-0.4) th/mm3 Baso # (Auto) (0.0-0.2) th/mm3 WBC Differential Seg Neuts % (Manual) (16-70) % Band Neuts % (Manual) (0-6) % Lymphocytes % (Manual) (9-44) % Monocytes % (Manual) (0-8) % Abs Neuts (Manual) (1.8-7.7) th/mm3 Differential Comment Toxic Vacuolation (None) Platelet Estimate (Normal) Platelet Morphology (Normal) Acanthocytes (Spur) (None) Puncture Site Patient Temperature VBG pH (7.360-7.400) VBG pCO2 (44-48) mmHG VBG pO2 (35-40) mmHG VBG HCO3 (22-26) mmol/L VBG O2 Saturation (70-76) % VBG O2 Content (9.0-17.0) Vol % VBG Base Excess (-2-2) mmol/L VBG Carboxyhemoglobin (0-4) % VBG Methemoglobin (0-2) % Hemoglobin (12.0-16.0) G/DL O2 Delivery Device Critical Value Sodium (136-145) meq/L Potassium (3.5-5.1) meq/L Chloride (98-107) meq/L Carbon Dioxide (21.0-32.0) meq/L Anion Gap (5-15) meq/L BUN (7-18) mg/dL Creatinine (0.50-1.00) mg/dL Estimated GFR (>89) mL/min POC Glucose 143 H 293 H 374 H (68-110) mg/dl Random Glucose (74-106) mg/dL Calcium (8.5-10.1) mg/dL Phosphorus (2.5-4.9) mg/dL Magnesium (1.5-2.5) mg/dL Total Bilirubin (0.2-1.0) mg/dL AST (15-37) U/L ALT (10-53) U/L Alkaline Phosphatase (45-117) U/L Troponin I (0.02-0.05) ng/mL Total Protein (6.4-8.2) g/dL Albumin (3.4-5.0) g/dL Beta-Hydroxybutyric Acd (0.00-0.39) mmol/L Urine Color (Yellw/Straw) Urine Clarity (Clear) Urine pH (5.0-8.5) Ur Specific [place] (1.002-1.035) Urine Protein (Neg-Trace) mg/dL Urine Glucose (UA) (Negative) mg/dL Urine Ketones (Negative) mg/dL Urine Occult Blood (Negative) Urine Nitrate (Negative) Urine Bilirubin (Negative) Urine Urobilinogen (Less than 2) mg/dL Ur Leukocyte Esterase (Negative) Urine RBC (0-3) /hpf Urine WBC (0-5) /hpf Ur Squamous Epith Cells (0-5) /hpf Urine Mucus (Occasional) /lpf Micro UA Comment Ur Microscopic Review Urine Culture Comments Nasal Screen MRSA (PCR) (Negative) Group B Strep (PCR) 08/05/18 08/05/18 Range/Units 17:59 18:15 WBC (4.0-11.0) th/mm3 RBC (4.00-5.30) mil/mm3 Hgb (11.6-15.3) gm/dL Hct (35.0-46.0) % MCV (80.0-100.0) fL MCH (27.0-34.0) pg MCHC (32.0-36.0) % RDW (11.6-17.2) % Plt Count (150-450) th/mm3 MPV (7.0-11.0) fL Prelim Diff (Auto) Neut % (Auto) (16.0-70.0) % Lymph % (Auto) (9.0-44.0) % [place] % (Auto) (0.0-8.0) % Eos % (Auto) (0.0-4.0) % Baso % (Auto) (0.0-2.0) % Neut # (Auto) (1.8-7.7) th/mm3 Lymph # (Auto) (1.0-4.8) th/mm3 [place] # (Auto) (0.0-0.9) th/mm3 Eos # (Auto) (0.0-0.4) th/mm3 Baso # (Auto) (0.0-0.2) th/mm3 WBC Differential Seg Neuts % (Manual) (16-70) % Band Neuts % (Manual) (0-6) % Lymphocytes % (Manual) (9-44) % Monocytes % (Manual) (0-8) % Abs Neuts (Manual) (1.8-7.7) th/mm3 Differential Comment Toxic Vacuolation (None) Platelet Estimate (Normal) Platelet Morphology (Normal) Acanthocytes (Spur) (None) Puncture Site Patient Temperature VBG pH (7.360-7.400) VBG pCO2 (44-48) mmHG VBG pO2 (35-40) mmHG VBG HCO3 (22-26) mmol/L VBG O2 Saturation (70-76) % VBG O2 Content (9.0-17.0) Vol % VBG Base Excess (-2-2) mmol/L VBG Carboxyhemoglobin (0-4) % VBG Methemoglobin (0-2) % Hemoglobin (12.0-16.0) G/DL O2 Delivery Device Critical Value Sodium (136-145) meq/L Potassium (3.5-5.1) meq/L Chloride (98-107) meq/L Carbon Dioxide (21.0-32.0) meq/L Anion Gap (5-15) meq/L BUN (7-18) mg/dL Creatinine (0.50-1.00) mg/dL Estimated GFR (>89) mL/min POC Glucose 333 H (68-110) mg/dl Random Glucose (74-106) mg/dL Calcium (8.5-10.1) mg/dL Phosphorus (2.5-4.9) mg/dL Magnesium (1.5-2.5) mg/dL Total Bilirubin (0.2-1.0) mg/dL AST (15-37) U/L ALT (10-53) U/L Alkaline Phosphatase (45-117) U/L Troponin I (0.02-0.05) ng/mL Total Protein (6.4-8.2) g/dL Albumin (3.4-5.0) g/dL Beta-Hydroxybutyric Acd (0.00-0.39) mmol/L Urine Color (Yellw/Straw) Urine Clarity (Clear) Urine pH (5.0-8.5) Ur Specific [place] (1.002-1.035) Urine Protein (Neg-Trace) mg/dL Urine Glucose (UA) (Negative) mg/dL Urine Ketones (Negative) mg/dL Urine Occult Blood (Negative) Urine Nitrate (Negative) Urine Bilirubin (Negative) Urine Urobilinogen (Less than 2) mg/dL Ur Leukocyte Esterase (Negative) Urine RBC (0-3) /hpf Urine WBC (0-5) /hpf Ur Squamous Epith Cells (0-5) /hpf Urine Mucus (Occasional) /lpf Micro UA Comment Ur Microscopic Review Urine Culture Comments Nasal Screen MRSA (PCR) (Negative) Group B Strep (PCR) Cancelled Imaging Data Radiologist's impression: Chest X-Ray 08/04/18 19:18 CONCLUSION: No acute cardiopulmonary disease. Discharge Plan Discharge Disposition Patient Disposition: 30 Still Patient Discharge Condition Condition: Fair Discharge Details Diagnosis: DKA (diabetic ketoacidoses) Physicians Team ED Provider: Francisco Boyd Primary Care Provider: UNKNOWN, Attending Provider: Kip Treadwell Other Providers: Bri Bro Discharge Interventions Interventions: ED Discharge Assessment Last Done: 08/05/18 00:29 Status ED Status: Left Department Discharge Information Discharge Date/Time: 08/05/18 00:30
[2018-08-04 19:33] LABS: VBG Base Excess -23.3 mmol/L (-2-2); VBG Blood Gas Oxygen Content 14.9 Vol % (9.0-17.0); VBG PCO2 21 mmHG (44-48); VBG PH 7.04 (7.360-7.400); VBG PO2 51 mmHG (35-40)
--- NOTE | 2018-08-04 20:07 | XR ---
EXAM DATE: 08/04/2018 7:18 PM EDT AGE/SEX: 53 years / Female INDICATIONS: Short of breath. CLINICAL DATA: This is the patient's initial encounter. Patient reports that signs and symptoms have been present for 1 day and indicates a pain score of 0/10. MEDICAL/SURGICAL HISTORY: None. None. COMPARISON: No prior exams available for comparison. FINDINGS: A single AP view of the chest demonstrates the lungs to be symmetrically aerated without evidence of mass, infiltrate or effusion. The cardiomediastinal contours are unremarkable. Osseous structures a re intact. There are multiple overlying electrocardiogram leads. CONCLUSION: No acute cardiopulmonary disease. Electronically signed by: Morteza Naqvi MD 08/04/2018 8:06 PM EDT
[2018-08-04 20:14] LABS: Baso # (Auto) 0.3 th/mm3 (0.0-0.2); Baso % (Auto) 1.1 % (0.0-2.0); Eos % (Auto) 0.1 % (0.0-4.0); Hematocrit 46.2 % (35.0-46.0); Hemoglobin 14.4 gm/dL (11.6-15.3); Lymph # (Auto) 3.4 th/mm3 (1.0-4.8); Lymph % (Auto) 10.5 % (9.0-44.0); Mean Corpuscular HGB Conc 31.3 % (32.0-36.0); Mean Corpuscular Hemoglobin 32.2 pg (27.0-34.0); Mean Corpuscular Volume 103.1 fL (80.0-100.0); Mean Platelet Volume 10.1 fL (7.0-11.0); Mono # (Auto) 2.6 th/mm3 (0.0-0.9); Mono % (Auto) 8.1 % (0.0-8.0); Neut % (Auto) 80.2 % (16.0-70.0); Platelet Count 376 th/mm3 (150-450); Red Blood Count 4.48 mil/mm3 (4.00-5.30); Red Cell Distribution Width 13.5 % (11.6-17.2); White Blood Count 32.4 th/mm3 (4.0-11.0)
[2018-08-04 20:38] LABS: Lymphocytes 7 % (9-44); Monocytes 8 % (0-8); Toxic Vacuolation Present
[2018-08-04 20:39] LABS: Acanthocytes Occ; Platelet Morphology Normal (Normal)
[2018-08-04] MEDS ORDERED: Insulin Regular (For Infusion) 100 UNIT in Sodium Chlor 0.9% Inj 99 ML IV.CONT PRN ×2 (21:11→23:13)
[2018-08-04] MEDS: Sod Chloride 0.9% Inj 1,000 ML IV.SIG SCH ×2 (21:26→23:06)
[2018-08-04 22:09] LABS: Anion Gap 30 meq/L (5-15)
[2018-08-04 22:15] LABS: Alanine Aminotransferase 21 U/L (10-53); Albumin 3.6 g/dL (3.4-5.0); Aspartate Aminotransferase 15 U/L (15-37); Blood Urea Nitrogen 55 mg/dL (7-18); Calcium 8.2 mg/dL (8.5-10.1); Carbon Dioxide 6.5 meq/L (21.0-32.0); Chloride 85 meq/L (98-107); Glomerular Filtration Rate 23 mL/min (>89); Potassium 4.6 meq/L (3.5-5.1); Total Protein 7.2 g/dL (6.4-8.2)
[2018-08-04 22:24] LABS: Glucose,Random 893 mg/dL (74-106)
[2018-08-04 22:27] LABS: Beta Hydroxybutyric Acid 12.59 mmol/L (0.00-0.39)
[2018-08-04 22:28] LABS: Alkaline Phosphatase 134 U/L (45-117)
[2018-08-04 22:34] LABS: Sodium 121 meq/L (136-145)
[2018-08-04] MEDS ORDERED: Bisacodyl 10 MG Supp RECTAL PRN (23:10)
[2018-08-04] MEDS ORDERED: Acetaminophen 325 MG Tablet PO PRN (23:10)
[2018-08-04] MEDS ORDERED: Temazepam 15 MG Capsule PO PRN (23:10)
[2018-08-04] MEDS: Sod Chloride 0.9% Inj 1,000 ML IV.CONT SCH (23:12)
[2018-08-04] MEDS ORDERED: Potassium Chlor 20 mEq Premix 20 MEQ/100 ML PIGGYBACK IV.SIG PRN ×6 (23:13)
[2018-08-04] MEDS ORDERED: Sodium Phosphate Inj 15 MMOL in Sodium Chlor 0.9% Inj 100 ML IV.SIG PRN (23:13)
[2018-08-04] MEDS ORDERED: Potassium Chlor 40 mEq Premix 40 MEQ/100 ML PIGGYBACK IV.SIG PRN ×2 (23:13)
--- NOTE | 2018-08-04 23:17 | P.HPCC ---
History of Present Illness Primary Care Physician: UNKNOWN History of Present Illness: 53-year-old female with insulin-dependent diabetes mellitus, presents because she is out of her insulin and is concerned about her elevated glucose. Patient was recently diagnosed diabetic in group home, where she was started on metformin and insulin. Now since she was released from group home she no longer has been able to pay for her prescriptions. And this was approximately 4 days ago. Patient denies any chest pain shortness of breath nausea vomiting diarrhea. Inpatient Certification: I certify that the inpatient services were ordered in accordance with Medicare regulations governing the order. This includes certification that hospital inpatient services are reasonable and necessary and in the case of services not specified as inpatient-only under 42 CFR 419.22(n), that they are appropriately provided as inpatient services in accordance to with the 2-midnight benchmark under 43 CFR 412.3(e) Estimated Total Length of Stay (Days): 5 Plans for Post Hospital Care: Not yet determined Review of Systems All other systems reviewed negative except as stated in HPI PMFSH - History History Provided By: Patient - Medical History Medical History: Medical History (Last Reviewed 08/04/18 @ 19:30 by Francisco Boyd) Diabetes High blood pressure - Tobacco History Second Hand Smoke Exposure: No Smoking Status: Never smoker - Alcohol History How Often Do You Have a Drink Containing Alcohol: Never - Substance Use History Substance History: No History of Abuse - Substance Use Type Other Type: IVDA Status: Sustained Remission - Travel History Recent Travel in the [place] Within the Last 8 Weeks: No Recent Travel Out of the Country Within the Last 8 Weeks: No - Immunization History Tetanus Immunization: <5 Years Medications and Allergies Active Medications: Active Medications Acetaminophen (Tylenol) 650 mg PO Q6H PRN PRN Reason: PAIN 1-10 AND/OR FEVER >101F Al Hydroxide/Mg Hydroxide (Milk Of Magnjohanna Liq) 30 ml PO Q12H PRN PRN Reason: Mild Constipation Albuterol (Duoneb Neb (Prn)) 1 ampul NEB Q2HR NEB PRN PRN Reason: WHEEZING Bisacodyl (Dulcolax Supp) 10 mg RECTAL DAILY PRN PRN Reason: SEVERE CONSITIPATION Chlorhexidine Gluconate (Chlorhexidine 2% Cloth) 3 pack TOPICAL DAILY@0400 [facility] Stop: 08/10/18 03:59 Chlorhexidine Gluconate (Chlorhexidine 2% Cloth) 3 pack TOPICAL DAILY@0400 PRN PRN Reason: Extra cloth needed Stop: 08/10/18 03:59 Dextrose (D50w Vial) 50 ml IV.PUSH UNSCH PRN PRN Reason: PER HYPOGLYCEMIA PROTOCOL Hydromorphone HCl (Dilaudid Pf Inj) 1 mg IV.PUSH Q4H PRN PRN Reason: PAIN SCALE 6 TO 10 Insulin Human Regular 100 unit (/ Sodium Chloride) 100 mls @ 8 mls/hr IV.CONT TITRATE PRN; Protocol PRN Reason: See protocol Sodium Chloride (Ns Inj) 1,000 mls @ 250 mls/hr IV.CONT .Q4H DARREN Last Admin: 08/04/18 23:12 Dose: 250 mls/hr Potassium Chloride (Kcl 40 Meq Premix Inj) 40 meq in 100 mls @ 100 mls/hr IV.SIG Q1H PRN PRN Reason: for Initial K+ ONLY < 3.5 Potassium Chloride (Kcl 40 Meq Premix Inj) 40 meq in 100 mls @ 50 mls/hr IV.SIG Q2H PRN PRN Reason: for Subsequent K+ < 3.5 Potassium Chloride (Kcl 20 Meq Premix Inj) 20 meq in 100 mls @ 100 mls/hr IV.SIG Q1H PRN PRN Reason: for K+ 3.5 to 4.4 Potassium Chloride (Kcl 20 Meq Premix Inj) 20 meq in 100 mls @ 50 mls/hr IV.SIG Q2H PRN PRN Reason: for Initial K+ ONLY < 3.5 Potassium Chloride (Kcl 20 Meq Premix Inj) 20 meq in 100 mls @ 50 mls/hr IV.SIG Q2H PRN PRN Reason: for Subsequent K+ < 3.5 Potassium Chloride (Kcl 20 Meq Premix Inj) 20 meq in 100 mls @ 50 mls/hr IV.SIG Q2H PRN PRN Reason: for K+ 3.5 to 4.4 Potassium Chloride (Kcl 20 Meq Premix Inj) 20 meq in 100 mls @ 50 mls/hr IV.SIG Q2H PRN PRN Reason: for K+ 4.5 to 5 Lactulose (Lactulose Liq) 30 ml PO DAILY PRN PRN Reason: SEVERE CONSITIPATION Lisinopril (Prinivil) 10 mg PO DAILY DARREN Ondansetron HCl (Zofran Inj) 4 mg IV.PUSH Q6H PRN PRN Reason: NAUSEA OR VOMITING Senna/Docusate Sodium (Funmilayo-Colace) 1 tab PO BID DARREN Sennosides (Senokot) 17.2 mg PO Q12H PRN PRN Reason: Moderate Constipation Sodium Bicarbonate (Sodium Bicarbonate 8.4% Inj) 50 meq IV.PUSH UNSCH PRN PRN Reason: for pH 6.9 to 7.0 Sodium Chloride (Ns Flush) 2 ml IV.FLUSH PRN PRN PRN Reason: FLUSH AFTER USING IV ACCESS Sodium Chloride (Ns Flush) 2 ml IV.FLUSH BID DARREN Sodium Chloride (Ns Flush) 2 ml IV.FLUSH PRN PRN PRN Reason: FLUSH AFTER USING IV ACCESS Temazepam (Restoril) 15 mg PO HS PRN PRN Reason: INSOMNIA Allergies Allergy/AdvReac Type Severity Reaction Status Date / Time codeine Allergy Severe N/V Verified 08/04/18 19:22 Home Medications Medication Instructions Recorded Confirmed Type lisinopril 10 mg PO DAILY 08/04/18 08/04/18 History Results - Labs CBC & Chem 7: 08/04/18 19:35 08/05/18 00:10 Labs: Short CBC 08/04/18 Range/Units 19:35 WBC 32.4 H (4.0-11.0) th/mm3 Hgb 14.4 (11.6-15.3) gm/dL Hct 46.2 H (35.0-46.0) % Plt Count 376 (150-450) th/mm3 BMP 08/04/18 20:55 Sodium 121 L* Potassium 4.6 Chloride 85 L Carbon Dioxide 6.5 L BUN 55 H Creatinine 2.27 H Calcium 8.2 L Cardiac Enzymes 08/04/18 Range/Units 20:55 Troponin I Less than 0.02 L (0.02-0.05) ng/mL Liver Function 08/04/18 Range/Units 20:55 Total Bilirubin 0.7 (0.2-1.0) mg/dL AST 15 (15-37) U/L ALT 21 (10-53) U/L Alkaline Phosphatase 134 H (45-117) U/L Albumin 3.6 (3.4-5.0) g/dL - Imaging Impressions Chest X-Ray 08/04/18 19:18 CONCLUSION: No acute cardiopulmonary disease. Exam Vital signs: Vital Signs 08/04/18 18:55 08/04/18 19:03 08/04/18 19:29 Temperature 98.3 F Pulse Rate 96 H 102 H 96 H Respiratory Rate 20 22 Blood Pressure 114/56 L 128/59 L Pulse Oximetry 100 100 100 Intake & Output 08/04/18 08/04/18 08/05/18 06:59 18:59 06:59 Intake Total 1999 Balance 1999 Weight 75.296 kg Intake: IV 1999 NS Inj 1,000 ML @ 1000 mls/hr 1999 IV.SIG .Q1H DARREN Rx#:[id number] - Constitutional mild distress - Routine HEENT Exam Head: Present: normocephalic, atraumatic Eye: Present: PERRL, normal accommodation ENT: Present: mucous membranes moist - Routine Neck Exam Present: supple, full ROM. Absent: JVD, carotid bruit - Routine Respiratory Exam Absent: accessory muscle use, rhonchi, stridor, wheezes - Routine Cardiovascular Exam Present: RRR, S1, S2. Absent: murmur, gallop, rubs - Routine Abdominal Exam Present: soft, normoactive bowel sounds. Absent: tenderness, distended - Routine Extremities Exam Absent: cyanosis, clubbing, edema - Routine Skin Exam Present: intact. Absent: cyanosis, erythema - Routine Neurological Exam Present: alert, oriented X3, moving all extremities Septic Shock Reassessment Septic shock perfusion: reassessment completed Caprini VTE Risk Assessment Caprini VTE Risk Assessment: Moderate/High Risk (score >= 2) Caprini Risk Assessment Model: Point Value = 1 Point Value = 2 Point Value = 3 Point Value = 5 Age 41-60 Minor surgery BMI > 25 kg/m2 Swollen legs Varicose veins or History of unexplained or recurrent spontaneous Oral contraceptives or hormone replacement Sepsis (< 1 month) Serious lung disease, including pneumonia (< 1 month) Abnormal pulmonary function Acute myocardial infarction Congestive heart failure (< 1 month) History of inflammatory bowel disease Medical patient at bed rest Age 61-74 Arthroscopic surgery Major open surgery (> 45 min) Laparoscopic surgery (> 45 min) Malignancy Confined to bed (> 72 hours) Immobilizing plaster cast Central venous access Age >= 75 History of VTE Family history of VTE Factor V Leiden Prothrombin [id number] Lupus anticoagulant Anticardiolipin antibodies Elevated serum homocysteine Heparin-induced thrombocytopenia Other congenital or acquired thrombophilia Stroke (< 1 month) Elective arthroplasty Hip, pelvis, or leg fracture Acute spinal cord injury (< 1 month) Prophylaxis Regimen: Total Risk Factor Score Risk Level Prophylaxis Regimen 0-1 Low Early ambulation 2 Moderate Order ONE of the following: *Sequential Compression Device (SCD) *Heparin 5000 units SQ BID 3-4 Higher Order ONE of the following medications: *Heparin 5000 units SQ TID *Enoxaparin/Lovenox 40 mg SQ daily (WT < 150 kg, CrCl > 30 mL/min) *Enoxaparin/Lovenox 30 mg SQ daily (WT < 150 kg, CrCl > 10-29 mL/min) *Enoxaparin/Lovenox 30 mg SQ BID (WT < 150 kg, CrCl > 30 mL/min) AND/OR *Sequential Compression Device (SCD) 5 or more Highest Order ONE of the following medications: *Heparin 5000 units SQ TID (Preferred with Epidurals) *Enoxaparin/Lovenox 40 mg SQ daily (WT < 150 kg, CrCl > 30 mL/min) *Enoxaparin/Lovenox 30 mg SQ daily (WT < 150 kg, CrCl > 10-29 mL/min) *Enoxaparin/Lovenox 30 mg SQ BID (WT < 150 kg, CrCl > 30 mL/min) AND *Sequential Compression Device (SCD) Assessment and Plan - Assessment and Plan Plan: DKA -IV hydration -Insulin drip per protocol -Electrolyte replacement -Troponins and EKGs ruling out ACS -Decompensation most likely due to lack of medications Leukocytosis -With bandemia -Blood cultures pending -CXR without acute process -Broad-spectrum antibiotics times 3 days, DC if cultures negative Acute kidney injury -Unknown baseline -I's and O's -IV fluid hydration -Monitor electrolytes and creatinine levels DVT GI prophylaxis -Teds SCDs -Early aggressive mobilization -Subcu heparin -1800 ADA when DKA resolves 35 minutes of critical care
[2018-08-05 03:19] LABS: Bilirubin,Urine Negative (Negative); Clarity,Urine Clear (Clear); Color,Urine Straw (Yellw/Straw); Glucose,Urine (UA) 500 or Greater mg/dL (Negative); Leukocyte Esterase,Urine Negative (Negative); Mucus,Urine Few /lpf (Occasional); Nitrite,Urine Negative (Negative); Specific Gravity,Urine 1.016 (1.002-1.035); Squamous Epithelial Cell,Urine <1 /hpf (0-5)
[2018-08-05] MEDS: Chlorhexidine Gluconate 2% 1 Pack (2 Cloths) TOPICAL SCH (03:27)
[2018-08-05] MEDS ORDERED: Chlorhexidine Gluconate 2% 1 Pack (2 Cloths) TOPICAL PRN ×2 (04:00)
[2018-08-05] MEDS ORDERED: Chlorhexidine Gluconate 2% 1 Pack (2 Cloths) TOPICAL SCH (04:00)
[2018-08-05] MEDS: Sod Chloride 0.9% Inj 1,000 ML IV.CONT SCH ×5 (04:25→10:49)
[2018-08-05] MEDS: Dextrose 5%/NaCl 0.9% Inj 1,000 ML IV.CONT SCH ×2 (05:22→05:44)
[2018-08-05] MEDS ORDERED: Vancomycin Consult Pharmacy OTHER PRN (05:29)
[2018-08-05] MEDS: Piperacil/Tazo 2.25 GM Premix 50 ML IV.SIG SCH ×3 (05:59→18:47)
[2018-08-05] MEDS ORDERED: Vancomycin Inj 1,000 MG in Sodium Chlor 0.9% Inj 250 ML IV.SIG ONE (06:00)
[2018-08-05 06:23] LABS: Calcium 8.4 mg/dL (8.5-10.1); Potassium 3.6 meq/L (3.5-5.1)
[2018-08-05 06:39] LABS: Beta Hydroxybutyric Acid 2.86 mmol/L (0.00-0.39)
[2018-08-05] MEDS: HYDROmorphone PF Inj 2 MG/ML Vial IV.PUSH PRN ×3 (08:01→20:37)
[2018-08-05] MEDS: Senna/Docusate Sodium 8.6/50 MG Tablet PO SCH ×2 (08:03→20:37)
[2018-08-05] MEDS: Lisinopril 10 MG Tablet PO SCH (08:03)
[2018-08-05] MEDS ORDERED: Dextrose 50% in Water 50 ML Vial IV.PUSH PRN (08:42)
--- NOTE | 2018-08-05 08:49 | P.PNCC ---
Subjective Subjective Remarks/Hospital Course: 53-year-old female with insulin-dependent diabetes mellitus, presents because she is out of her insulin and is concerned about her elevated glucose. Patient was recently diagnosed diabetic in shelter, where she was started on metformin and insulin. Now since she was released from shelter she no longer has been able to pay for her prescriptions. And this was approximately 4 days ago. Patient denies any chest pain shortness of breath nausea vomiting diarrhea. SUBJ 08/05: Lying in bed no distress states that she is thirsty. Anion gap has closed currently remains on insulin infusion per protocol and D5 normal saline. I will transition to subcu Levemir, pre-meal NovoLog and sliding scale. Objective Vital Signs / I&O: Vital Signs 08/04/18 18:55 08/04/18 19:03 08/04/18 19:29 Temperature 98.3 F Pulse Rate 96 H 102 H 96 H Respiratory Rate 20 22 Blood Pressure 114/56 L 128/59 L Pulse Oximetry 100 100 100 08/04/18 21:00 08/04/18 22:00 08/04/18 23:00 Temperature Pulse Rate 96 H 101 H 93 H Respiratory Rate 18 20 20 Blood Pressure 114/63 127/68 125/65 Pulse Oximetry 100 100 100 08/05/18 01:00 08/05/18 01:28 08/05/18 01:30 Temperature 99.7 F H Pulse Rate 110 H 105 H 102 H Respiratory Rate 22 19 Blood Pressure 128/65 Pulse Oximetry 100 98 08/05/18 02:00 08/05/18 03:00 08/05/18 04:19 Temperature 98.8 F Pulse Rate 102 H 100 H 108 H Respiratory Rate 24 27 H 24 Blood Pressure 108/57 L 124/90 142/63 H Pulse Oximetry 99 100 100 08/05/18 05:00 08/05/18 06:00 Temperature Pulse Rate 102 H 104 H Respiratory Rate 18 24 Blood Pressure 128/59 L 139/73 Pulse Oximetry 95 99 Intake & Output 08/04/18 08/05/18 08/05/18 18:59 06:59 18:59 Intake Total 3150 / 3150 Output Total 1800 / 1800 Balance 1350 / 1350 Weight 75.296 kg 73 kg Intake: IV 3150 / 3150 NS Inj 1,000 ML @ 250 mls/hr IV 1000 / 1000 .CONT .Q4H DARREN Rx#:[id number] Zosyn 2.25 GM Premix 50 ML @ 50 / 50 200 mls/hr IV.SIG Q6H DARREN Rx#: [id number] KCl 20 mEq Premix Inj 20 meq In 100 / 100 100 ml @ 100 mls/hr IV.SIG Q1H PRN Rx#:[id number] NS Inj 1,000 ML @ 1000 mls/hr 2000 / 1999 IV.SIG .Q1H DARREN Rx#:[id number] Output: Urine 1800 / 1800 Other: Weight On Admission 72 kg Result Diagrams: 08/04/18 19:35 08/05/18 04:47 Objective Remarks: - Constitutional No acute distress - Routine HEENT Exam Head: Present: normocephalic, atraumatic Eye: Present: PERRL, normal accommodation ENT: Present: mucous membranes dry - Routine Neck Exam Present: supple, full ROM. Absent: JVD, carotid bruit - Routine Respiratory Exam Absent: accessory muscle use, rhonchi, stridor, wheezes - Routine Cardiovascular Exam Present: RRR, S1, S2. Absent: murmur, gallop, rubs - Routine Abdominal Exam Present: soft, normoactive bowel sounds. Absent: tenderness, distended - Routine Extremities Exam Absent: cyanosis, clubbing, edema - Routine Skin Exam Present: intact. Absent: cyanosis, erythema - Routine Neurological Exam Present: alert, oriented X3, moving all extremities Assessment and Plan - Assessment and Plan Plan: DKA -IV hydration -Insulin drip per protocol will be DCd -Transition ordered written with scheduled Levemir, Novolog premeal and sliding scale -Electrolyte replacement -Troponins and EKGs ruling out ACS -Decompensation most likely due to lack of medications/noncompliance Leukocytosis -With bandemia -Blood cultures pending -CXR without acute process -Broad-spectrum antibiotics times 3 days, DC if cultures negative Acute kidney injury -Unknown baseline, improving -I's and O's -IV fluid hydration -Monitor electrolytes and creatinine levels DVT GI prophylaxis -Teds SCDs -Early aggressive mobilization -Subcu heparin -1800 ADA diet ordered Level 2 [facility] to assume care in am Code Status: Full
[2018-08-05 08:55] LABS: Baso % (Auto) 0.2 % (0.0-2.0); Hematocrit 36.8 % (35.0-46.0); Lymph # (Auto) 1.6 th/mm3 (1.0-4.8); Mean Corpuscular HGB Conc 35.3 % (32.0-36.0); Mean Corpuscular Volume 90.7 fL (80.0-100.0); Mean Platelet Volume 8.6 fL (7.0-11.0); Mono # (Auto) 1.6 th/mm3 (0.0-0.9); Mono % (Auto) 7.4 % (0.0-8.0); Neut # (Auto) 18.9 th/mm3 (1.8-7.7); Neut % (Auto) 85.4 % (16.0-70.0); Platelet Count 254 th/mm3 (150-450); Red Blood Count 4.06 mil/mm3 (4.00-5.30); Red Cell Distribution Width 12.3 % (11.6-17.2); White Blood Count 22.2 th/mm3 (4.0-11.0)
[2018-08-05] MEDS ORDERED: DC Insulin drip 2 hrs post basal insulin dose OTHER ONE (09:20)
[2018-08-05 09:22] LABS: Alanine Aminotransferase 23 U/L (10-53); Albumin 3.8 g/dL (3.4-5.0); Alkaline Phosphatase 124 U/L (45-117); Anion Gap 12 meq/L (5-15); Aspartate Aminotransferase 31 U/L (15-37); Blood Urea Nitrogen 32 mg/dL (7-18); Calcium 8.5 mg/dL (8.5-10.1); Carbon Dioxide 17.9 meq/L (21.0-32.0); Chloride 107 meq/L (98-107); Glomerular Filtration Rate 49 mL/min (>89); Glucose,Random 180 mg/dL (74-106); Phosphorus 1.6 mg/dL (2.5-4.9); Potassium 3.9 meq/L (3.5-5.1); Total Protein 7.4 g/dL (6.4-8.2)
[2018-08-05 09:23] LABS: Sodium 137 meq/L (136-145)
[2018-08-05] MEDS ORDERED: DC previous DKA orders (HMC 1917) OTHER ONE (09:30)
[2018-08-05] MEDS: Insulin Detemir Inj 1,000 UNIT/10 ML Vial SQ SCH ×2 (09:43→22:12)
[2018-08-05] MEDS: Insulin NovoLOG Aspart Correctional Sugar Inj SQ SCH ×2 (12:50→18:00)
--- NOTE | 2018-08-05 20:06 | ECG ---
Date Performed: 08/04/2018 Time Performed: 19:31:15 PTAGE: 53 years EKG: Sinus rhythm NORMAL ECG PREVIOUS TRACING : 10/30/2012 20.53 Compared to previous tracing, the previously noted septal i nfact is no longer present. DOCTOR: Mary Catalan Interpretating Date/Time 08/05/2018 20:03:55
[2018-08-05 23:22] LABS: Calcium 8.9 mg/dL (8.5-10.1); Carbon Dioxide 22.6 meq/L (21.0-32.0); Potassium 3.7 meq/L (3.5-5.1)
[2018-08-06] MEDS: Insulin NovoLOG Aspart Correctional Sugar Inj SQ SCH ×4 (00:30→18:12)
[2018-08-06] MEDS: Piperacil/Tazo 2.25 GM Premix 50 ML IV.SIG SCH ×4 (00:30→17:32)
[2018-08-06] MEDS: HYDROmorphone PF Inj 2 MG/ML Vial IV.PUSH PRN ×5 (01:21→22:04)
[2018-08-06] MEDS: Chlorhexidine Gluconate 2% 1 Pack (2 Cloths) TOPICAL SCH (05:36)
[2018-08-06] MEDS ORDERED: Vancomycin Inj 1,000 MG in Sodium Chlor 0.9% Inj 250 ML IV.SIG SCH (06:00)
[2018-08-06] MEDS: Senna/Docusate Sodium 8.6/50 MG Tablet PO SCH ×2 (08:22→22:06)
[2018-08-06] MEDS: Lisinopril 10 MG Tablet PO SCH (08:22)
[2018-08-06 09:10] LABS: Hematocrit 35.2 % (35.0-46.0); Hemoglobin 12.4 gm/dL (11.6-15.3); Mean Corpuscular HGB Conc 35.1 % (32.0-36.0); Mean Corpuscular Hemoglobin 32.1 pg (27.0-34.0); Mean Corpuscular Volume 91.2 fL (80.0-100.0); Mean Platelet Volume 8.2 fL (7.0-11.0); Platelet Count 181 th/mm3 (150-450); Red Blood Count 3.85 mil/mm3 (4.00-5.30); Red Cell Distribution Width 12.8 % (11.6-17.2)
[2018-08-06] MEDS: Insulin Detemir Inj 1,000 UNIT/10 ML Vial SQ SCH (09:17)
[2018-08-06 09:46] LABS: Albumin 3.3 g/dL (3.4-5.0); Anion Gap 9 meq/L (5-15); Aspartate Aminotransferase 36 U/L (15-37); Blood Urea Nitrogen 11 mg/dL (7-18); Calcium 8.7 mg/dL (8.5-10.1); Carbon Dioxide 27.1 meq/L (21.0-32.0); Chloride 99 meq/L (98-107); Glomerular Filtration Rate Greater Than 89 mL/min (>89); Glucose,Random 208 mg/dL (74-106); Potassium 3.1 meq/L (3.5-5.1); Sodium 135 meq/L (136-145)
[2018-08-06 09:47] LABS: Alanine Aminotransferase 24 U/L (10-53)
[2018-08-06 09:50] LABS: Alkaline Phosphatase 103 U/L (45-117); Total Protein 6.6 g/dL (6.4-8.2)
[2018-08-06] MEDS ORDERED: Nystatin/Diphenhydramine/Lidocaine Mouthwash (Adult) 120 ML Botttle SWISH-SWAL PRN (14:00)
--- NOTE | 2018-08-06 17:28 | P.PNIM ---
Subjective Interval history: Patient still feels weak following episode of DKA. She was recently incarcerated for 90 days and did not adhere to a diabetic diet while in custodial. She was sent home from custodial and did not feel right for a few days prior to becoming weak and ending up in our ER with DKA. Her main complaint at this point is a very sore throat Physical Exam Vital signs: Vital Signs 08/05/18 17:30 08/05/18 18:00 08/05/18 18:31 Temperature Pulse Rate 92 H 91 H 98 H Respiratory Rate 13 19 24 Blood Pressure 110/57 L 121/66 142/73 H Pulse Oximetry 96 98 97 08/05/18 19:00 08/05/18 19:30 08/05/18 20:00 Temperature 99.7 F H Pulse Rate 98 H 95 H 93 H Respiratory Rate 19 15 29 H Blood Pressure 118/56 L 108/53 L 100/54 L Pulse Oximetry 95 96 96 08/05/18 20:50 08/05/18 21:00 08/05/18 21:01 Temperature Pulse Rate 89 91 H 92 H Respiratory Rate 19 23 21 Blood Pressure 124/55 L 103/63 103/63 Pulse Oximetry 91 L 93 L 93 L 08/05/18 21:54 08/05/18 22:39 08/06/18 00:00 Temperature 97.5 F L 97.9 F Pulse Rate 85 83 Respiratory Rate 16 20 20 Blood Pressure 112/55 L 115/60 Pulse Oximetry 93 L 96 08/06/18 04:00 08/06/18 08:00 08/06/18 12:00 Temperature 97.8 F 98.6 F 98.5 F Pulse Rate 67 71 68 Respiratory Rate 16 16 17 Blood Pressure 110/62 137/63 160/76 H Pulse Oximetry 94 L 94 L 95 08/06/18 16:00 Temperature 98.6 F Pulse Rate 82 Respiratory Rate 17 Blood Pressure 173/93 H Pulse Oximetry 94 L Intake & Output 08/05/18 08/06/18 08/06/18 18:59 06:59 18:59 Intake Total 2210 / 2210 150 / 150 50 / 50 Output Total 1300 / 1300 900 / 900 Balance 910 / 910 -750 / -750 50 / 50 Intake: IV 530 / 530 150 / 150 50 / 50 NovoLIN R (IV Infusion) 100 80 / 80 UNIT In NS Inj 99 ML @ 8 UNITS/ HR 8 mls/hr IV.CONT TITRATE PRN Rx#:[id number] Zosyn 2.25 GM Premix 50 ML @ 100 / 100 150 / 150 50 / 50 200 mls/hr IV.SIG Q6H DARREN Rx#: [id number] KCl 20 mEq Premix Inj 20 meq In 100 / 100 100 ml @ 100 mls/hr IV.SIG Q1H PRN Rx#:[id number] Vancomycin Inj 1,000 MG In NS 250 / 250 Inj 250 ML @ 250 mls/hr IV.SIG ONCE ONE Rx#:[id number] Oral 1680 / 1680 Output: Urine 1300 / 1300 900 / 900 Other: # Voids 2 # Bowel Movements 0 Narrative: GENERAL: AAOx3, no acute distress SKIN: Warm and dry. No rashes HEAD: Atruamtic, normocephalic. EYES: No scleral icterus. No injection or drainage. ENT: Moist mucous membranes, patent nares, oropharynx erythematous NECK: Supple, trachea midline. Cervical lymphadenopathy. Normal thyroid. CARDIOVASCULAR: Regular rate and rhythm. No murmurs, gallops, or rubs. RESPIRATORY: Breath sounds clear equal bilaterally. No crackles or wheezes. No accessory muscle use. GASTROINTESTINAL: Abdomen soft, non-tender, nondistended, normal active bowel sounds MUSCULOSKELETAL: No cyanosis, or edema. NEURO: CN II-XII grossly intact, no focal deficits, no slurring of speech Results - Labs CBC & Chem 7: 08/06/18 08:22 08/06/18 08:22 Laboratory Results - last 24 hr 08/05/18 08/05/18 08/05/18 17:59 18:15 22:02 WBC RBC Hgb Hct MCV MCH MCHC RDW Plt Count MPV Sodium 135 L Potassium 3.7 Chloride 104 Carbon Dioxide 22.6 Anion Gap 8 BUN 17 Creatinine 0.75 Estimated GFR 81 L POC Glucose 333 H Random Glucose 262 H Calcium 8.9 Magnesium Total Bilirubin AST ALT Alkaline Phosphatase Total Protein Albumin Group B Strep (PCR) Cancelled 08/06/18 08/06/18 08/06/18 00:03 05:48 08:13 WBC RBC Hgb Hct MCV MCH MCHC RDW Plt Count MPV Sodium Potassium Chloride Carbon Dioxide Anion Gap BUN Creatinine Estimated GFR POC Glucose 274 H 242 H 221 H Random Glucose Calcium Magnesium Total Bilirubin AST ALT Alkaline Phosphatase Total Protein Albumin Group B Strep (PCR) 08/06/18 08/06/18 08/06/18 08:22 08:22 12:35 WBC 12.0 H RBC 3.85 L Hgb 12.4 Hct 35.2 MCV 91.2 MCH 32.1 MCHC 35.1 RDW 12.8 Plt Count 181 MPV 8.2 Sodium 135 L Potassium 3.1 L Chloride 99 Carbon Dioxide 27.1 Anion Gap 9 BUN 11 Creatinine 0.56 Estimated GFR Greater than 89 POC Glucose 212 H Random Glucose 208 H Calcium 8.7 Magnesium 2.0 Total Bilirubin 0.8 AST 36 ALT 24 Alkaline Phosphatase 103 Total Protein 6.6 D Albumin 3.3 L Group B Strep (PCR) Microbiology 08/05/18 20:50 Throat Group A Streptococcus Screen/Cult - Preliminary Results Pending 08/05/18 07:24 Blood - Peripheral Aerobic Blood Culture - Preliminary No growth in 1 day 08/05/18 07:24 Blood - Peripheral Anaerobic Blood Culture - Final QNS - See aerobic report. 08/05/18 07:17 Blood - Peripheral Aerobic Blood Culture - Preliminary No growth in 1 day 08/05/18 07:17 Blood - Peripheral Anaerobic Blood Culture - Preliminary No growth in 1 day 08/05/18 20:50 Throat Group A Streptococcus Screen ([place]PO[place]) - Final Assessment and Plan - Plan DKA Patient corrected in the ICU, transferred to [facility] yesterday Continue with scheduled Levemir Continue sliding scale insulin coverage with NovoLog Begin metformin Leukocytosis Trend is downward but disproportionate, patient is afebrile Blood cultures thus far negative Rapid strep negative Chest x-ray negative Continue Zosyn and vancomycin for empiric coverage Type 2 diabetes Accu-Cheks with sliding scale insulin coverage Diabetic diet DVT Prophylaxis Heparin
[2018-08-06] MEDS: Phenol 1.4% 180 ML Spray Bottle OROPHARYNG PRN ×3 (17:32→22:45)
[2018-08-06] MEDS: Vancomycin Inj 1,000 MG in Sodium Chlor 0.9% Inj 250 ML IV.SIG SCH (18:12)
[2018-08-07] MEDS: Piperacil/Tazo 2.25 GM Premix 50 ML IV.SIG SCH ×2 (00:41→05:18)
[2018-08-07] MEDS: Insulin NovoLOG Aspart Correctional Sugar Inj SQ SCH ×5 (00:52→21:40)
[2018-08-07] MEDS: Insulin Detemir Inj 1,000 UNIT/10 ML Vial SQ SCH ×3 (00:52→21:39)
[2018-08-07] MEDS: HYDROmorphone PF Inj 2 MG/ML Vial IV.PUSH PRN ×6 (01:56→21:38)
[2018-08-07] MEDS: Phenol 1.4% 180 ML Spray Bottle OROPHARYNG PRN ×2 (05:18→09:31)
[2018-08-07] MEDS: Chlorhexidine Gluconate 2% 1 Pack (2 Cloths) TOPICAL SCH (05:19)
[2018-08-07] MEDS ORDERED: Dextrose 50% in Water 50 ML Vial IV.PUSH PRN (05:33)
[2018-08-07] MEDS: Vancomycin Inj 1,000 MG in Sodium Chlor 0.9% Inj 250 ML IV.SIG SCH ×2 (05:53→18:27)
[2018-08-07 07:41] LABS: Hematocrit 35.2 % (35.0-46.0); Hemoglobin 12.8 gm/dL (11.6-15.3); Mean Corpuscular Hemoglobin 32.9 pg (27.0-34.0); Mean Corpuscular Volume 90.6 fL (80.0-100.0); Mean Platelet Volume 8.7 fL (7.0-11.0); Platelet Count 175 th/mm3 (150-450); Red Blood Count 3.89 mil/mm3 (4.00-5.30); Red Cell Distribution Width 12.5 % (11.6-17.2); White Blood Count 7.9 th/mm3 (4.0-11.0)
[2018-08-07 07:48] LABS: Mean Corpuscular HGB Conc 36.3 % (32.0-36.0)
[2018-08-07 08:18] LABS: Anion Gap 10 meq/L (5-15); Blood Urea Nitrogen 11 mg/dL (7-18); Calcium 8.8 mg/dL (8.5-10.1); Carbon Dioxide 31.4 meq/L (21.0-32.0); Chloride 91 meq/L (98-107); Glomerular Filtration Rate Greater Than 89 mL/min (>89); Glucose,Random 337 mg/dL (74-106); Potassium 3.2 meq/L (3.5-5.1); Sodium 132 meq/L (136-145)
[2018-08-07] MEDS: Lisinopril 10 MG Tablet PO SCH (09:19)
[2018-08-07] MEDS: Senna/Docusate Sodium 8.6/50 MG Tablet PO SCH ×2 (09:19→21:30)
[2018-08-07] MEDS: Piperacil/Tazo 3.375 GM Premix 50 ML IV.SIG SCH ×3 (13:17→23:31)
--- NOTE | 2018-08-07 15:41 | P.DS ---
Date of admission: 08/04/18 22:56 Primary care physician: UNKNOWN Brief History from admission: 53-year-old female with insulin-dependent diabetes mellitus, presents because she is out of her insulin and is concerned about her elevated glucose. Patient was recently diagnosed diabetic in senior care, where she was started on metformin and insulin. Now since she was released from senior care she no longer has been able to pay for her prescriptions. And this was approximately 4 days ago. Patient denies any chest pain shortness of breath nausea vomiting diarrhea. DS: Medications - Discharge Medications Prescriptions: benzocaine [HurriCaine] 1 spray OROPHARYNG Q6H PRN 5 Days #1 g PRN Reason: Sore Throat cephalexin 500 mg PO BID 8 Days #16 cap hydrocodone-acetaminophen [Lorcet (hydrocodone)] 1 tab PO Q6HR PRN 3 Days #12 tab PRN Reason: Acute Pain insulin aspart U-100 [Novolog U-100 Insulin aspart] 1 unit SUBCUT ACHS 30 Days # 10 ml insulin detemir U-100 [Levemir U-100 Insulin] 15 unit SUBCUT Q12H 30 Days #10 ml lisinopril 10 mg PO DAILY 30 Days #30 tab DS: Summary Hospital Course: 53-year-old female with recent diagnosis of type 2 diabetes presented to the ER 3 days ago in DKA. She spent the night in the ICU and then transferred out after responding well to insulin therapy. Since admission she has demonstrated leukocytosis, uncertain etiology other than her complaint of 1 of the worst sore throats of her life. On examination her throat is erythematous, a few small blisters yesterday which have resolved by today. She has been receiving empiric therapy with dual IV antibiotics to cover for a variety of causes of infection, but thus far blood cultures are negative, urine sample is negative, chest x-ray is within normal limits, no abdominal symptoms. Given the extent of her sore throat and moderate lymphadenopathy the most likely diagnosis is strep throat, versus viral. Her rapid strep test performed yesterday is negative, but could be masked by 2 days of IV antibiotics. She remains afebrile and outside of the throat is comfortable. She states that she feels like she could go home tomorrow. She informed staff that her family intends to pick her up at 7 AM tomorrow and that she will need a discharge in place tonight in order to fill that. I have written for Keflex for 8 more days as well as a variety of other meds including insulin, long-acting and rapid, metformin, Keflex, hydrocodone, lisinopril. She is to follow-up with her primary care provider or establish with 1 in the next week if she does not have one yet. - Time Spent with Patient Total time spent providing and/or coordinating discharge services: Less than 30 minutes - Quality: VTE Deep Vein Thrombosis/Pulmonary Embolism Present on Admission: No Exam Vital signs: Vital Signs 08/06/18 16:00 08/06/18 19:39 08/06/18 22:20 Temperature 98.6 F 98.6 F Pulse Rate 82 73 Respiratory Rate 17 18 14 Blood Pressure 173/93 H 147/72 H Pulse Oximetry 94 L 92 L 08/07/18 00:00 08/07/18 02:30 08/07/18 04:00 Temperature 98.6 F 98.6 F Pulse Rate 75 83 Respiratory Rate 16 14 16 Blood Pressure 172/83 H 135/71 Pulse Oximetry 93 L 96 08/07/18 08:00 08/07/18 12:00 08/07/18 14:42 Temperature 98.6 F 98.2 F Pulse Rate 71 72 Respiratory Rate 20 20 14 Blood Pressure 138/64 141/64 H Pulse Oximetry 92 L 93 L Intake & Output 08/06/18 08/07/18 08/07/18 18:59 06:59 18:59 Intake Total 830 / 830 1100 / 1100 Balance 830 / 830 1100 / 1100 Weight 74.3 kg Intake: IV 350 / 350 300 / 300 Zosyn 2.25 GM Premix 50 ML @ 100 / 100 50 / 50 200 mls/hr IV.SIG Q6H DARREN Rx#: [id number] Vancomycin Inj 1,000 MG In NS 250 / 250 250 / 250 Inj 250 ML @ 250 mls/hr IV.SIG Q12H DARREN Rx#:[id number] Oral 480 / 480 800 / 800 Other: # Voids 3 # Bowel Movements 0 Results Procedures completed during hospitalization: none Labs on day of discharge: Labs from last 24 hours 08/07/18 08/07/18 08/07/18 11:42 07:44 06:27 WBC RBC Hgb Hct MCV MCH MCHC RDW Plt Count MPV Sodium 132 L Potassium 3.2 L Chloride 91 L D Carbon Dioxide 31.4 Anion Gap 10 BUN 11 Creatinine 0.58 Estimated GFR Greater than 89 POC Glucose 234 H 327 H Random Glucose 337 H D Calcium 8.8 Anti-Streptolysin Scrn 08/07/18 08/07/18 08/06/18 06:27 00:40 18:02 WBC 7.9 RBC 3.89 L Hgb 12.8 Hct 35.2 MCV 90.6 MCH 32.9 MCHC 36.3 H RDW 12.5 Plt Count 175 MPV 8.7 Sodium Potassium Chloride Carbon Dioxide Anion Gap BUN Creatinine Estimated GFR POC Glucose 296 H 217 H Random Glucose Calcium Anti-Streptolysin Scrn 08/06/18 13:30 WBC RBC Hgb Hct MCV MCH MCHC RDW Plt Count MPV Sodium Potassium Chloride Carbon Dioxide Anion Gap BUN Creatinine Estimated GFR POC Glucose Random Glucose Calcium Anti-Streptolysin Scrn Neg Preliminary micro results at discharge 08/05/18 07:24 Aerobic Blood Culture - Preliminary Blood - Peripheral No growth in 2 days 08/05/18 07:17 Aerobic Blood Culture - Preliminary Blood - Peripheral No growth in 2 days Anaerobic Blood Culture - Preliminary No growth in 2 days - Impressions ITS Impressions Chest X-Ray 08/04/18 19:18 CONCLUSION: No acute cardiopulmonary disease. Discharge Plan - Discharge Disposition Patient Disposition: 01 Discharge Home - Discharge Condition Condition: Fair - Discharge Order Discharge Orders: Discharge Order (Routine); Ordered 08/08/18 Ordered By: Osiel Lassiter - Discharge Details Anticipated Discharge Date: 08/08/18 Discharge Comment: Expected discharge at 7am with family - Physicians Team Primary Care Provider: UNKNOWN, Attending Provider: Osiel Lassiter
[2018-08-07] MEDS: Benzocaine 20% Oral Spray 60 ML Can OROPHARYNG PRN ×2 (16:23→23:31)
[2018-08-08 00:30] VITALS: O2SAT 95
[2018-08-08] MEDS: HYDROmorphone PF Inj 2 MG/ML Vial IV.PUSH PRN (04:01)
[2018-08-08] MEDS: Chlorhexidine Gluconate 2% 1 Pack (2 Cloths) TOPICAL SCH (04:03)
[2018-08-08 05:21] VITALS: BP 114/62; PULSE 76; TEMP 98.5
[2018-08-08] MEDS ORDERED: Pharmacy Ordered Lab Info OTHER ONE (05:45)
[2018-08-08 05:54] VITALS: RESP 16
[2018-08-08] MEDS: Piperacil/Tazo 3.375 GM Premix 50 ML IV.SIG SCH (05:56)
[2018-08-08] MEDS: Vancomycin Inj 1,000 MG in Sodium Chlor 0.9% Inj 250 ML IV.SIG SCH (07:05)
== END 2018-08-08 07:47 | disposition home or self-care (01) ==
LOC: NEPE 18:37 → NEDA 22:56 → HIMC 08-05 00:30 → N05 08-05 22:23
PROVIDERS: ADMIT Family Medicine; ATTEND Family Medicine

== ENCOUNTER 2018-08-11 11:45 | Observation (INO) ==
--- NOTE | 2018-08-11 14:55 | ED ---
HPI General Chief complaint: Diabetic Stated complaint: Blood Sugar Complaint Time Seen by Provider: 08/11/18 14:38 History of Present Illness HPI narrative: This is a 53-year-old female who was diagnosed with diabetes 3 months ago while in alf. She was released from alf 2 weeks ago. She presents complaining of fatigue, polyuria, polydipsia, weakness and dizziness. Symptoms been ongoing for the past few days. She was seen here yesterday and diagnosed with DKA but she left AMA because she had things to do. She now presents for further evaluation. Symptoms are moderate, no obvious aggravating relieving factors. She reports that she is currently using Levemir occasionally for blood sugar control but nothing else. She has no other complaints at this time. Related Data Previous Rx's Medication Instructions Recorded benzocaine [HurriCaine] 1 spray OROPHARYNG Q6H PRN 5 Days 08/07/18 #1 g blood-glucose meter [Blood Glucose #1 each 08/07/18 Monitoring] cephalexin 500 mg PO BID 8 Days #16 cap 08/07/18 insulin aspart U-100 [Novolog 1 unit SUBCUT ACHS 30 Days #10 ml 08/07/18 U-100 Insulin aspart] insulin detemir U-100 [Levemir 15 unit SUBCUT Q12H 30 Days #10 ml 08/07/18 U-100 Insulin] insulin syringe-needle U-100 [BD #10 each 08/07/18 Insulin Syringe] lisinopril 10 mg PO DAILY 30 Days #30 tab 08/07/18 metformin 500 mg PO BID 30 Days #60 tab 08/07/18 Allergies Allergy/AdvReac Type Severity Reaction Status Date / Time codeine Allergy Severe N/V Verified 08/11/18 14:53 Review of Systems ROS: all other systems reviewed are negative [facility] Medical History Medical History Diabetes (Acute) High blood pressure (Acute) Surgical History Surgical History No history of previous surgery (Acute) Social History Social History Substance History: No History of Abuse Second Hand Smoke Exposure: No Smoking Status: Never smoker How Often Do You Have a Drink Containing Alcohol: Never Recent Travel in [facility] within the Last 8 Weeks: No Recent Out of Country Travel within the Last 8 Weeks: No Exam Narrative Exam Narrative: GENERAL: Well-developed well-nourished female no acute distress SKIN: Warm and dry. HEAD: Atraumatic. Normocephalic. EYES: Pupils equal and round. No scleral icterus. No injection or drainage. ENT: No nasal bleeding or discharge. Mucous membranes pink and moist. NECK: Trachea midline. No JVD. CARDIOVASCULAR: Regular rate and rhythm. No murmur appreciated. RESPIRATORY: No accessory muscle use. Clear to auscultation. Breath sounds equal bilaterally. GASTROINTESTINAL: Abdomen soft, non-tender, nondistended. Hepatic and splenic margins not palpable. MUSCULOSKELETAL: No obvious deformities. No clubbing. No cyanosis. No edema. NEUROLOGICAL: Awake and alert. No obvious cranial nerve deficits. Motor grossly within normal limits. Normal speech. PSYCHIATRIC: Appropriate mood and affect; insight and judgment normal. Course Initial Documented Vital Signs Temperature 98.0 F 08/11/18 11:47 Pulse Rate 95 H 08/11/18 11:47 Respiratory Rate 20 08/11/18 11:47 Blood Pressure 137/58 L 08/11/18 11:47 Pulse Oximetry 98 08/11/18 11:47 Last Documented Vital Signs Temperature 98.0 F 08/11/18 14:53 Pulse Rate 80 08/11/18 16:50 Respiratory Rate 18 08/11/18 16:50 Blood Pressure 144/68 H 08/11/18 16:50 Pulse Oximetry 99 08/11/18 16:50 Medical Decision Making ACE Attestation ACE supervised visit: Yes Attestation: I was present with the advanced practitioner during the management of this patient. I discussed the case with the advanced practitioner and agree with the findings and plan as documented in their note except as noted below. 53yF with diabetes mellitus, reports that she's been using levemir insulin only although she is also prescribed novolog. She says "the packet said the novolog is for when your sugar is low". Presents today with "feeling weak" and polyuria / polydipsia. She was admitted approximately a week ago for DKA. Her workup shows glucose of 500, normal anion gap, but elevated ketones. She will need IV hydration, glucose control, and diabetes education. She does not have reliable outpatient follow up. MDM Narrative Medical decision making narrative: Plan is for lab work, EKG, the patient was given normal saline bolus. Lab work reveals glucose of 500 with a normal anion gap, slightly low carbon dioxide. Upon further discussion it appears that the patient was unaware that she was supposed to be taking the NovoLog, she misread and thought that it was for low blood sugar. She has been using the Levemir more on a prn needed basis. She has no definitive outpatient follow-up at this time as she recently lost her insurance. At this point time the plan will be to admit her for observation for blood sugar control and diabetes education. She is agreeable. Medical Screen Exam Complete: Yes Emergency Medical Condition: Yes Differential Diagnosis Differential Diagnosis: DKA versus hyperglycemia versus medication noncompliance versus dehydration versus electrolyte abnormality Lab Data Result diagrams: 08/11/18 15:20 08/11/18 15:20 Lab Results 08/11/18 08/11/18 Range/Units 15:20 15:20 WBC 8.2 (4.0-11.0) th/mm3 RBC 4.24 (4.00-5.30) mil/mm3 Hgb 13.8 (11.6-15.3) gm/dL Hct 40.2 (35.0-46.0) % MCV 94.8 (80.0-100.0) fL MCH 32.5 (27.0-34.0) pg MCHC 34.3 (32.0-36.0) % RDW 12.6 (11.6-17.2) % Plt Count 299 D (150-450) th/mm3 MPV 8.1 (7.0-11.0) fL Neut % (Auto) 69.7 (16.0-70.0) % Lymph % (Auto) 19.5 (9.0-44.0) % [place] % (Auto) 9.6 H (0.0-8.0) % Eos % (Auto) 1.0 (0.0-4.0) % Baso % (Auto) 0.2 (0.0-2.0) % Neut # (Auto) 5.7 (1.8-7.7) th/mm3 Lymph # (Auto) 1.6 (1.0-4.8) th/mm3 [place] # (Auto) 0.8 (0.0-0.9) th/mm3 Eos # (Auto) 0.1 (0.0-0.4) th/mm3 Baso # (Auto) 0.0 (0.0-0.2) th/mm3 WBC Differential . Differential Comment Auto diff final Sodium 129 L (136-145) meq/L Potassium 3.8 D (3.5-5.1) meq/L Chloride 97 L (98-107) meq/L Carbon Dioxide 19.5 L D (21.0-32.0) meq/L Anion Gap 13 (5-15) meq/L BUN 20 H (7-18) mg/dL Creatinine 1.07 H (0.50-1.00) mg/dL Estimated GFR 54 L (>89) mL/min Random Glucose 500 H* (74-106) mg/dL Calcium 8.5 D (8.5-10.1) mg/dL Magnesium 2.0 (1.5-2.5) mg/dL Total Bilirubin 0.6 (0.2-1.0) mg/dL AST 17 (15-37) U/L ALT 26 (10-53) U/L Alkaline Phosphatase 105 (45-117) U/L Total Protein 7.1 (6.4-8.2) g/dL Albumin 3.5 (3.4-5.0) g/dL Beta-Hydroxybutyric Acd 2.19 H (0.00-0.39) mmol/L Discharge Plan Discharge Disposition Patient Disposition: 30 Still Patient Discharge Condition Condition: Stable Discharge Details Diagnosis: Hyperglycemia Physicians Team ED Provider: Geri Ahmadi ED Midlevel Provider: Jerome Allan Attending Provider: Jacob Muñiz Status ED Status: Admitted Observation Patient
[2018-08-11] MEDS ORDERED: Sod Chloride 0.9% Inj 1,000 ML IV.SIG SCH ×2 (15:00→16:15)
[2018-08-11 15:37] LABS: Baso % (Auto) 0.2 % (0.0-2.0); Eos # (Auto) 0.1 th/mm3 (0.0-0.4); Hematocrit 40.2 % (35.0-46.0); Hemoglobin 13.8 gm/dL (11.6-15.3); Lymph # (Auto) 1.6 th/mm3 (1.0-4.8); Lymph % (Auto) 19.5 % (9.0-44.0); Mean Corpuscular HGB Conc 34.3 % (32.0-36.0); Mean Corpuscular Hemoglobin 32.5 pg (27.0-34.0); Mean Corpuscular Volume 94.8 fL (80.0-100.0); Mean Platelet Volume 8.1 fL (7.0-11.0); Mono # (Auto) 0.8 th/mm3 (0.0-0.9); Mono % (Auto) 9.6 % (0.0-8.0); Neut # (Auto) 5.7 th/mm3 (1.8-7.7); Neut % (Auto) 69.7 % (16.0-70.0); Platelet Count 299 th/mm3 (150-450); Red Blood Count 4.24 mil/mm3 (4.00-5.30); Red Cell Distribution Width 12.6 % (11.6-17.2); White Blood Count 8.2 th/mm3 (4.0-11.0)
[2018-08-11 16:00] LABS: Alanine Aminotransferase 26 U/L (10-53); Albumin 3.5 g/dL (3.4-5.0); Alkaline Phosphatase 105 U/L (45-117); Anion Gap 13 meq/L (5-15); Aspartate Aminotransferase 17 U/L (15-37); Beta Hydroxybutyric Acid 2.19 mmol/L (0.00-0.39); Blood Urea Nitrogen 20 mg/dL (7-18); Calcium 8.5 mg/dL (8.5-10.1); Carbon Dioxide 19.5 meq/L (21.0-32.0); Chloride 97 meq/L (98-107); Glomerular Filtration Rate 54 mL/min (>89); Potassium 3.8 meq/L (3.5-5.1); Sodium 129 meq/L (136-145); Total Protein 7.1 g/dL (6.4-8.2)
[2018-08-11 16:10] LABS: Glucose,Random 500 mg/dL (74-106)
[2018-08-11] MEDS ORDERED: Acetaminophen 500 MG Tablet PO ONE (16:49)
--- NOTE | 2018-08-11 17:45 | P.HPFP ---
History of Present Illness Primary Care Physician: Tyshawn Sherman History of Present Illness: Patient is a 53-year-old female with a past medical history of hypertension and type 2 diabetes mellitus who presents to the emergency department with symptomatic hyperglycemia and chest pain. Patient was recently seen in the emergency department yesterday for elevated blood sugar and sore throat. Patient was found to have elevated blood pressure and metabolic acidosis with increased beta hydroxybutyrate. Patient diagnosed with DKA and was given 7 units of Novolin IV. Patient was advised to be admitted for DKA but refused admission. Patient reports she left against medical advice because she is participating in a clinical trial involving menopause but could not participate due to her use of lisinopril. Patient also recently admitted on August 04 to the ICU for DKA and discharged on the July. Patient presents today reporting that last night was really "rough". She reports shaking, blurry vision, and an unquenchable thirst, pain in every bone, nausea, "heartburn that made me want to vomit", and 4-5 episodes of bilious nonbloody vomiting. Patient reports that last night she measured her blood sugar at home to be 438 and 172 this morning. Patient reports giving herself 2 units of Levemir for every 50 over 150 of her blood glucose. Patient admits that she does not understand her diagnosis of diabetes nor its management. She also reports using her insulin wrong and says that she has not received good diabetic education. Patient reports a several week history of chest pain. She reports the chest pain is in the center of her sternum is intermittent and does not radiate. She describes the pain as soreness that is exacerbated by eating. It is unrelated to position or activity. The pain lasts less than a minute and self resolves. These episodes happen anywhere from 3-4 times a day. She reports that it is bettered by laying down but not worsened by any particular motion. Patient denies any other alleviating or exacerbating factors. Patient denies any other associated symptoms. Patient does report that she has recently moved and was carrying heavy boxes. ObHx: PMHx: HTN diagnosed less than a year ago Med: Lisinopril 20mg, Novolog, Levemir Surgical Hx: 2013 reconstructive surgery of L wrist after trauma, "tubes tied" in 2000 FHx: Mother at 63 from vulvar cancer Allergies: Codeine induces nausea and pruritus Social Hx: , lives with ex-, 2 sons and 1 daughter, Used to work for [employer] for 4 years, not currently working, men not active at the moment, Started smoking at 14 and 2 packs for 39 years ago and quit 3 months ago, no alcohol, no drugs Code: Full Code PCP: Dr. Sherman in [facility] - Diagnosis (1) Chest pain (2) Hyperglycemia (3) Type 2 diabetes mellitus (4) Hypertension (5) Strep throat (6) Nutrition, metabolism, and development symptoms Review of Systems Constitutional: Denies chills, Denies fever(s), Denies headache(s), endorses dizziness as described in HPI, patient also endorsed several day history of sore throat previously diagnosed with strep throat on last admission Eyes: Denies change in vision, Denies double vision, endorses blurry vision Cardiovascular: Endorses chest pain described in HPI, Denies fast heart rate, Denies rapid, pounding, or irregular heartbeat Respiratory: Denies shortness of breath or wheezing Gastrointestinal: Denies abdominal pain, Denies constipation, Denies loose stools, endorses nausea and vomiting as stated in HPI Genitourinary: Denies difficulty urinating, Denies painful urination, Denies urinary frequency, Denies blood in urine PMFSH - History History Provided By: Patient - Medical History Medical History: Medical History (Last Reviewed 08/11/18 @ 15:24 by Alice Stafford) Diabetes High blood pressure - Surgical History Surgical History: Surgical History (Last Updated 08/11/18 @ 15:25 by Alice Stafford) No history of previous surgery - Tobacco History Second Hand Smoke Exposure: No Smoking Status: Never smoker - Alcohol History How Often Do You Have a Drink Containing Alcohol: Never - Substance Use History Substance History: No History of Abuse - Travel History Recent Travel in the [place] Within the Last 8 Weeks: No Recent Travel Out of the Country Within the Last 8 Weeks: No - Immunization History Tetanus Immunization: >5 Years Medications and Allergies Active Medications: Active Medications Sodium Chloride (Ns Inj) 1,000 mls @ 0 mls/hr IV.SIG BOLUS DARREN Last Infusion: 08/11/18 16:50 Dose: Infused Sodium Chloride (Ns Inj) 1,000 mls @ 0 mls/hr IV.SIG BOLUS DARREN Allergies Allergy/AdvReac Type Severity Reaction Status Date / Time codeine Allergy Severe N/V Verified 08/11/18 14:53 Exam Vital signs: Vital Signs 08/11/18 11:47 08/11/18 14:53 08/11/18 15:23 Temperature 98.0 F 98.0 F Pulse Rate 95 H 95 H 83 Respiratory Rate 20 22 20 Blood Pressure 137/58 L 137/58 L 116/83 Pulse Oximetry 98 98 99 08/11/18 16:50 Temperature Pulse Rate 80 Respiratory Rate 18 Blood Pressure 144/68 H Pulse Oximetry 99 Intake & Output 08/10/18 08/11/18 08/11/18 18:59 06:59 18:59 Intake Total 1000 / 1000 Balance 1000 / 1000 Weight 74.843 kg Intake: IV 1000 / 1000 NS Inj 1,000 ML @ Wide Open IV. 1000 / 1000 SIG BOLUS DARREN Rx#:[id number] Narrative: Constitutional: Alert, cooperative, oriented. No acute distress. Mood and affect appropriate. Head and Neck: Normocephalic. Atraumatic. No lymphadenopathy. Eyes: Conjunctivae and sclerae are clear and without icterus. Pupils are reactive and equal. Extraocular movements intact. Oropharynx: No pharyngeal erythema or exudate noted, adenoids slightly large with no signs of infection or obstruction. Oral mucosa was particularly dry. Respiratory: Lungs are clear to auscultation without rhonchi or wheezing. Cardiovascular: Regular rate and rhythm of heart without murmurs, gallops or rubs. Patient did have reproducible tenderness upon palpation of the mid sternum. Abdomen: Non-tender, non-distended, no masses, ascites or hepatosplenomegaly. No guarding or rebound Extremities: No visible deformities, no cyanosis, clubbing or edema. Pulses equal bilaterally. Musculoskeletal: No tenderness or swelling, normal range of motion without obvious weakness. Integumentary: Warm, dry. Neurologic: Cranial nerves II through XII grossly intact with no obvious neurological, sensory, or motor deficits. Psychiatric: Alert and oriented. Coherent speech. Verbalizes understanding of our discussions today. Results - Labs Result diagrams: 08/11/18 15:20 08/11/18 15:20 Abnormal lab results 08/11/18 08/11/18 Range/Units 15:20 15:20 [place] % (Auto) 9.6 H (0.0-8.0) % Sodium 129 L (136-145) meq/L Chloride 97 L (98-107) meq/L Carbon Dioxide 19.5 L D (21.0-32.0) meq/L BUN 20 H (7-18) mg/dL Creatinine 1.07 H (0.50-1.00) mg/dL Estimated GFR 54 L (>89) mL/min Random Glucose 500 H* (74-106) mg/dL Beta-Hydroxybutyric Acd 2.19 H (0.00-0.39) mmol/L Short CBC 08/11/18 Range/Units 15:20 WBC 8.2 (4.0-11.0) th/mm3 Hgb 13.8 (11.6-15.3) gm/dL Hct 40.2 (35.0-46.0) % Plt Count 299 D (150-450) th/mm3 BMP 08/11/18 15:20 Sodium 129 L Potassium 3.8 D Chloride 97 L Carbon Dioxide 19.5 L D BUN 20 H Creatinine 1.07 H Calcium 8.5 D Liver Function 08/11/18 Range/Units 15:20 Total Bilirubin 0.6 (0.2-1.0) mg/dL AST 17 (15-37) U/L ALT 26 (10-53) U/L Alkaline Phosphatase 105 (45-117) U/L Albumin 3.5 (3.4-5.0) g/dL Caprini VTE Risk Assessment Caprini VTE Risk Assessment: No/Low Risk (score <= 1) Caprini Risk Assessment Model: Point Value = 1 Point Value = 2 Point Value = 3 Point Value = 5 Age 41-60 Minor surgery BMI > 25 kg/m2 Swollen legs Varicose veins or History of unexplained or recurrent spontaneous Oral contraceptives or hormone replacement Sepsis (< 1 month) Serious lung disease, including pneumonia (< 1 month) Abnormal pulmonary function Acute myocardial infarction Congestive heart failure (< 1 month) History of inflammatory bowel disease Medical patient at bed rest Age 61-74 Arthroscopic surgery Major open surgery (> 45 min) Laparoscopic surgery (> 45 min) Malignancy Confined to bed (> 72 hours) Immobilizing plaster cast Central venous access Age >= 75 History of VTE Family history of VTE Factor V Leiden Prothrombin [id number] Lupus anticoagulant Anticardiolipin antibodies Elevated serum homocysteine Heparin-induced thrombocytopenia Other congenital or acquired thrombophilia Stroke (< 1 month) Elective arthroplasty Hip, pelvis, or leg fracture Acute spinal cord injury (< 1 month) Prophylaxis Regimen: Total Risk Factor Score Risk Level Prophylaxis Regimen 0-1 Low Early ambulation 2 Moderate Order ONE of the following: *Sequential Compression Device (SCD) *Heparin 5000 units SQ BID 3-4 Higher Order ONE of the following medications: *Heparin 5000 units SQ TID *Enoxaparin/Lovenox 40 mg SQ daily (WT < 150 kg, CrCl > 30 mL/min) *Enoxaparin/Lovenox 30 mg SQ daily (WT < 150 kg, CrCl > 10-29 mL/min) *Enoxaparin/Lovenox 30 mg SQ BID (WT < 150 kg, CrCl > 30 mL/min) AND/OR *Sequential Compression Device (SCD) 5 or more Highest Order ONE of the following medications: *Heparin 5000 units SQ TID (Preferred with Epidurals) *Enoxaparin/Lovenox 40 mg SQ daily (WT < 150 kg, CrCl > 30 mL/min) *Enoxaparin/Lovenox 30 mg SQ daily (WT < 150 kg, CrCl > 10-29 mL/min) *Enoxaparin/Lovenox 30 mg SQ BID (WT < 150 kg, CrCl > 30 mL/min) AND *Sequential Compression Device (SCD) Assessment and Plan - Assessment (1) Chest pain Code(s): R07.9 - Chest pain, unspecified Status: Acute Plan: Patient reports a several week history of chest pain related to eating and reproducible upon palpation. Possible causes for acute chest pain are ACS versus musculoskeletal pain/costochondritis versus esophageal spasms. Due to the proximity of her chest pain to her abdomen pancreatitis versus cholecystitis also on differential. -Initial troponin less than 0.02 -Lipase 37 -Alkaline phosphatase 105 -Total bilirubin 0.6 -EKG pending -Trend troponin -Toradol for pain (2) Hyperglycemia Code(s): R73.9 - Hyperglycemia, unspecified Status: Acute Plan: Patient is a known type II diabetic diagnosed approximately 3 months ago with poor glycemic control. She was recently admitted to the ICU for DKA and discharged on 07 August. Patient was also seen in the ED yesterday and left AMA after being diagnosed with DKA yet again. Today patient is hyperglycemic with an anion gap of 13. Patient found to have a beta hydroxybutyrate level of 2.19 but with a closed anion gap. Patient received bolus of 8 units of Novolin in the ED as well as 2- 1L boluses of normal saline. -Hold home metformin -Begin IV hydration with normal saline at 1-1/2 times maintenance 170 mL/h -40 mEq of oral potassium -Begin low-dose sliding scale -Continue liquid diet until blood glucose levels begin to normalize -Monitor blood sugar (3) Type 2 diabetes mellitus Code(s): E11.9 - Type 2 diabetes mellitus without complications Status: Acute Plan: Patient recently diagnosed with type 2 diabetes several months ago while incarcerated according to EMR. Patient has poorly controlled blood sugar and has been recently admitted and discharged from the ICU due to DKA. Patient also diagnosed with DKA yesterday and left AMA. Patient has poor understanding of disease process and prognosis as well as management and insulin use. -Diabetic education consult has been ordered -Continue to educate patient on diabetes (4) Hypertension Code(s): I10 - Essential (primary) hypertension Status: Acute Plan: Patient previously diagnosed with hypertension currently controlled with lisinopril. Patient had a blood pressure of 137/58 on admission. Blood pressure currently controlled. -Continue home lisinopril (5) Strep throat Code(s): J02.0 - Streptococcal pharyngitis Status: Acute Plan: Patient reports several day history of sore throat. Upon last admission patient was diagnosed with strep throat but did have negative strep throat test. On physical exam today patient had no erythema or exudate in oropharynx. Patient is currently afebrile with a white count of 8.2. Patient was discharged on 8 days of 500 mg cephalexin twice daily. Patient has 4 days remaining on antibiotic treatment. -Continue and finish current course of antibiotic treatment. (6) Nutrition, metabolism, and development symptoms Code(s): R63.8 - Other symptoms and signs concerning food and fluid intake Status: Acute Plan: Fluids: Patient status post 2-1L boluses of normal saline. Patient currently at 1-1/2 times maintenance fluids. 170 mL/h of normal saline Electrolytes: Replete as needed Nutrition: Patient currently on liquid diet until blood sugars normalize, then advance diet as tolerated DVT prophylaxis: Enoxaparin 40 mg subcu daily
[2018-08-11] MEDS ORDERED: Acetaminophen 325 MG Tablet PO PRN (18:06)
[2018-08-11] MEDS: Ketorolac Inj 30 MG/ML (IVP) Vial IV.PUSH PRN (18:45)
[2018-08-11] MEDS ORDERED: Dextrose 50% in Water 50 ML Vial IV.PUSH PRN (18:47)
[2018-08-11 19:23] LABS: Bilirubin,Urine Negative (Negative); Clarity,Urine Clear (Clear); Color,Urine Yellow (Yellw/Straw); Glucose,Urine (UA) 500 or Greater mg/dL (Negative); Hyaline Casts,Urine 12 /lpf (0-3); Leukocyte Esterase,Urine Negative (Negative); Nitrite,Urine Negative (Negative); Specific Gravity,Urine 1.027 (1.002-1.035); Squamous Epithelial Cell,Urine <1 /hpf (0-5)
[2018-08-11 20:41] LABS: Lipase 37 U/L (73-393)
[2018-08-11] MEDS: Insulin NovoLOG Aspart Correctional Sugar Inj SQ SCH (21:13)
[2018-08-11] MEDS: Enoxaparin Inj 40 MG/0.4 ML Syringe SQ SCH (21:15)
[2018-08-11 22:57] LABS: Calcium 7.8 mg/dL (8.5-10.1); Carbon Dioxide 18.8 meq/L (21.0-32.0)
[2018-08-11] MEDS: Sod Chloride 0.9% Inj 1,000 ML IV.CONT SCH (22:59)
[2018-08-11 23:04] LABS: Potassium 2.9 meq/L (3.5-5.1)
[2018-08-11] MEDS ORDERED: Sodium Phosphate Inj 15 MMOL in Sodium Chlor 0.9% Inj 100 ML IV.SIG PRN (23:37)
[2018-08-11] MEDS ORDERED: Potassium Chlor 20 mEq Premix 20 MEQ/100 ML PIGGYBACK IV.SIG PRN ×4 (23:37)
[2018-08-12] MEDS: Insulin NovoLOG Aspart Correctional Sugar Inj SQ SCH ×3 (03:57→21:47)
[2018-08-12] MEDS: Sod Chloride 0.9% Inj 1,000 ML IV.CONT SCH ×2 (04:00→09:20)
[2018-08-12 06:03] LABS: Baso % (Auto) 0.6 % (0.0-2.0); Eos # (Auto) 0.1 th/mm3 (0.0-0.4); Eos % (Auto) 2.3 % (0.0-4.0); Hematocrit 34.8 % (35.0-46.0); Hemoglobin 12.4 gm/dL (11.6-15.3); Mean Corpuscular HGB Conc 35.5 % (32.0-36.0); Mean Corpuscular Hemoglobin 32.6 pg (27.0-34.0); Mean Corpuscular Volume 91.7 fL (80.0-100.0); Mono # (Auto) 0.8 th/mm3 (0.0-0.9); Mono % (Auto) 14.7 % (0.0-8.0); Neut # (Auto) 2.2 th/mm3 (1.8-7.7); Neut % (Auto) 42.4 % (16.0-70.0); Platelet Count 236 th/mm3 (150-450); Red Cell Distribution Width 12.4 % (11.6-17.2); White Blood Count 5.1 th/mm3 (4.0-11.0)
[2018-08-12 06:37] LABS: Alanine Aminotransferase 24 U/L (10-53); Albumin 2.9 g/dL (3.4-5.0); Alkaline Phosphatase 89 U/L (45-117); Anion Gap 10 meq/L (5-15); Aspartate Aminotransferase 14 U/L (15-37); Blood Urea Nitrogen 10 mg/dL (7-18); Calcium 7.9 mg/dL (8.5-10.1); Carbon Dioxide 21.9 meq/L (21.0-32.0); Chloride 108 meq/L (98-107); Glomerular Filtration Rate 78 mL/min (>89); Glucose,Random 221 mg/dL (74-106); Potassium 3.2 meq/L (3.5-5.1); Sodium 140 meq/L (136-145)
--- NOTE | 2018-08-12 11:32 | P.PNFP ---
Subjective Interval history: No acute events overnight. Patient sitting in bed and eating breakfast. Patient states that she is feeling better. Reports that she was previously in senior care because she was driving her motorcycle without a license. Patient states that she was on NPH in the past. She currently states that she does not have insurance due to losing her job. No other complaints this morning. Denies fevers, chest pain, shortness of breath, nausea vomiting, abdominal pain. <Babita Valderrama - 08/12/18 14:21> Results - Labs Result diagrams: 08/12/18 05:42 08/12/18 11:17 <Jacob Muñiz - 08/12/18 17:25> Abnormal lab results 08/11/18 08/11/18 08/11/18 Range/Units 15:20 18:14 20:25 RBC (4.00-5.30) mil/mm3 Hct (35.0-46.0) % [place] % (Auto) (0.0-8.0) % Sodium (136-145) meq/L Potassium (3.5-5.1) meq/L Chloride (98-107) meq/L Carbon Dioxide (21.0-32.0) meq/L Estimated GFR (>89) mL/min POC Glucose 340 H 407 H (68-110) mg/dl Random Glucose (74-106) mg/dL Calcium (8.5-10.1) mg/dL AST (15-37) U/L Troponin I Less than 0.02 L (0.02-0.05) ng/mL Total Protein (6.4-8.2) g/dL Albumin (3.4-5.0) g/dL Lipase 37 L (73-393) U/L 08/11/18 08/12/18 08/12/18 Range/Units 22:13 03:41 05:42 RBC 3.80 L (4.00-5.30) mil/mm3 Hct 34.8 L (35.0-46.0) % [place] % (Auto) 14.7 H (0.0-8.0) % Sodium 135 L (136-145) meq/L Potassium 2.9 L* D (3.5-5.1) meq/L Chloride (98-107) meq/L Carbon Dioxide 18.8 L (21.0-32.0) meq/L Estimated GFR 65 L (>89) mL/min POC Glucose 300 H (68-110) mg/dl Random Glucose 463 H* (74-106) mg/dL Calcium 7.8 L (8.5-10.1) mg/dL AST (15-37) U/L Troponin I (0.02-0.05) ng/mL Total Protein (6.4-8.2) g/dL Albumin (3.4-5.0) g/dL Lipase (73-393) U/L 08/12/18 08/12/18 08/12/18 Range/Units 05:42 07:47 11:17 RBC (4.00-5.30) mil/mm3 Hct (35.0-46.0) % [place] % (Auto) (0.0-8.0) % Sodium (136-145) meq/L Potassium 3.2 L (3.5-5.1) meq/L Chloride 108 H (98-107) meq/L Carbon Dioxide (21.0-32.0) meq/L Estimated GFR 78 L (>89) mL/min POC Glucose 215 H (68-110) mg/dl Random Glucose 221 H D 428 H D (74-106) mg/dL Calcium 7.9 L 8.0 L (8.5-10.1) mg/dL AST 14 L (15-37) U/L Troponin I (0.02-0.05) ng/mL Total Protein 6.0 L D (6.4-8.2) g/dL Albumin 2.9 L D (3.4-5.0) g/dL Lipase (73-393) U/L 08/12/18 Range/Units 12:08 RBC (4.00-5.30) mil/mm3 Hct (35.0-46.0) % [place] % (Auto) (0.0-8.0) % Sodium (136-145) meq/L Potassium (3.5-5.1) meq/L Chloride (98-107) meq/L Carbon Dioxide (21.0-32.0) meq/L Estimated GFR (>89) mL/min POC Glucose 495 H* (68-110) mg/dl Random Glucose (74-106) mg/dL Calcium (8.5-10.1) mg/dL AST (15-37) U/L Troponin I (0.02-0.05) ng/mL Total Protein (6.4-8.2) g/dL Albumin (3.4-5.0) g/dL Lipase (73-393) U/L Short CBC 08/12/18 Range/Units 05:42 WBC 5.1 (4.0-11.0) th/mm3 Hgb 12.4 (11.6-15.3) gm/dL Hct 34.8 L (35.0-46.0) % Plt Count 236 (150-450) th/mm3 BMP 08/11/18 08/12/18 08/12/18 22:13 05:42 11:17 Sodium 135 L 140 136 Potassium 2.9 L* D 3.2 L 3.5 Chloride 103 108 H 103 Carbon Dioxide 18.8 L 21.9 24.0 BUN 15 10 8 Creatinine 0.91 0.77 0.66 Calcium 7.8 L 7.9 L 8.0 L Cardiac Enzymes 08/11/18 Range/Units 15:20 Troponin I Less than 0.02 L (0.02-0.05) ng/mL Liver Function 08/12/18 Range/Units 05:42 Total Bilirubin 0.5 (0.2-1.0) mg/dL AST 14 L (15-37) U/L ALT 24 (10-53) U/L Alkaline Phosphatase 89 (45-117) U/L Albumin 2.9 L D (3.4-5.0) g/dL Urine 08/11/18 Range/Units 15:00 Urine Color Yellow (Yellw/Straw) Urine Clarity Clear (Clear) Urine pH 6.0 (5.0-8.5) Ur Specific [place] 1.027 (1.002-1.035) Urine Protein Negative (Neg-Trace) mg/dL Urine Glucose (UA) 500 or greater (Negative) mg/dL <Jacob Muñiz - 08/12/18 17:25> Abnormal lab results 08/11/18 08/11/18 08/11/18 Range/Units 15:20 15:20 15:20 RBC (4.00-5.30) mil/mm3 Hct (35.0-46.0) % [place] % (Auto) 9.6 H (0.0-8.0) % Sodium 129 L (136-145) meq/L Potassium (3.5-5.1) meq/L Chloride 97 L (98-107) meq/L Carbon Dioxide 19.5 L D (21.0-32.0) meq/L BUN 20 H (7-18) mg/dL Creatinine 1.07 H (0.50-1.00) mg/dL Estimated GFR 54 L (>89) mL/min POC Glucose (68-110) mg/dl Random Glucose 500 H* (74-106) mg/dL Calcium (8.5-10.1) mg/dL AST (15-37) U/L Troponin I Less than 0.02 L (0.02-0.05) ng/mL Total Protein (6.4-8.2) g/dL Albumin (3.4-5.0) g/dL Lipase 37 L (73-393) U/L Beta-Hydroxybutyric Acd 2.19 H (0.00-0.39) mmol/L 08/11/18 08/11/18 08/11/18 Range/Units 18:14 20:25 22:13 RBC (4.00-5.30) mil/mm3 Hct (35.0-46.0) % [place] % (Auto) (0.0-8.0) % Sodium 135 L (136-145) meq/L Potassium 2.9 L* D (3.5-5.1) meq/L Chloride (98-107) meq/L Carbon Dioxide 18.8 L (21.0-32.0) meq/L BUN (7-18) mg/dL Creatinine (0.50-1.00) mg/dL Estimated GFR 65 L (>89) mL/min POC Glucose 340 H 407 H (68-110) mg/dl Random Glucose 463 H* (74-106) mg/dL Calcium 7.8 L (8.5-10.1) mg/dL AST (15-37) U/L Troponin I (0.02-0.05) ng/mL Total Protein (6.4-8.2) g/dL Albumin (3.4-5.0) g/dL Lipase (73-393) U/L Beta-Hydroxybutyric Acd (0.00-0.39) mmol/L 08/12/18 08/12/18 08/12/18 Range/Units 03:41 05:42 05:42 RBC 3.80 L (4.00-5.30) mil/mm3 Hct 34.8 L (35.0-46.0) % [place] % (Auto) 14.7 H (0.0-8.0) % Sodium (136-145) meq/L Potassium 3.2 L (3.5-5.1) meq/L Chloride 108 H (98-107) meq/L Carbon Dioxide (21.0-32.0) meq/L BUN (7-18) mg/dL Creatinine (0.50-1.00) mg/dL Estimated GFR 78 L (>89) mL/min POC Glucose 300 H (68-110) mg/dl Random Glucose 221 H D (74-106) mg/dL Calcium 7.9 L (8.5-10.1) mg/dL AST 14 L (15-37) U/L Troponin I (0.02-0.05) ng/mL Total Protein 6.0 L D (6.4-8.2) g/dL Albumin 2.9 L D (3.4-5.0) g/dL Lipase (73-393) U/L Beta-Hydroxybutyric Acd (0.00-0.39) mmol/L 08/12/18 Range/Units 07:47 RBC (4.00-5.30) mil/mm3 Hct (35.0-46.0) % [place] % (Auto) (0.0-8.0) % Sodium (136-145) meq/L Potassium (3.5-5.1) meq/L Chloride (98-107) meq/L Carbon Dioxide (21.0-32.0) meq/L BUN (7-18) mg/dL Creatinine (0.50-1.00) mg/dL Estimated GFR (>89) mL/min POC Glucose 215 H (68-110) mg/dl Random Glucose (74-106) mg/dL Calcium (8.5-10.1) mg/dL AST (15-37) U/L Troponin I (0.02-0.05) ng/mL Total Protein (6.4-8.2) g/dL Albumin (3.4-5.0) g/dL Lipase (73-393) U/L Beta-Hydroxybutyric Acd (0.00-0.39) mmol/L Short CBC 08/11/18 08/12/18 Range/Units 15:20 05:42 WBC 8.2 5.1 (4.0-11.0) th/mm3 Hgb 13.8 12.4 (11.6-15.3) gm/dL Hct 40.2 34.8 L (35.0-46.0) % Plt Count 299 D 236 (150-450) th/mm3 BMP 08/11/18 08/11/18 08/12/18 15:20 22:13 05:42 Sodium 129 L 135 L 140 Potassium 3.8 D 2.9 L* D 3.2 L Chloride 97 L 103 108 H Carbon Dioxide 19.5 L D 18.8 L 21.9 BUN 20 H 15 10 Creatinine 1.07 H 0.91 0.77 Calcium 8.5 D 7.8 L 7.9 L Cardiac Enzymes 08/11/18 Range/Units 15:20 Troponin I Less than 0.02 L (0.02-0.05) ng/mL Liver Function 08/11/18 08/12/18 Range/Units 15:20 05:42 Total Bilirubin 0.6 0.5 (0.2-1.0) mg/dL AST 17 14 L (15-37) U/L ALT 26 24 (10-53) U/L Alkaline Phosphatase 105 89 (45-117) U/L Albumin 3.5 2.9 L D (3.4-5.0) g/dL Urine 08/11/18 Range/Units 15:00 Urine Color Yellow (Yellw/Straw) Urine Clarity Clear (Clear) Urine pH 6.0 (5.0-8.5) Ur Specific [place] 1.027 (1.002-1.035) Urine Protein Negative (Neg-Trace) mg/dL Urine Glucose (UA) 500 or greater (Negative) mg/dL <Babita Valderrama T - 08/12/18 11:32> Physical Exam Vital signs: Vital Signs 08/11/18 18:15 08/11/18 18:18 08/11/18 19:10 Temperature Pulse Rate 80 Respiratory Rate 18 Blood Pressure 135/72 Pulse Oximetry 97 98 98 08/11/18 20:00 08/12/18 00:00 08/12/18 08:00 Temperature 98.4 F 97.7 F 97.6 F Pulse Rate 77 76 68 Respiratory Rate 16 16 16 Blood Pressure 158/76 H 132/75 124/60 Pulse Oximetry 98 96 98 08/12/18 12:00 08/12/18 16:00 Temperature 98.5 F Pulse Rate 70 74 Respiratory Rate 16 16 Blood Pressure 169/79 H 112/75 Pulse Oximetry 99 98 Intake & Output 08/11/18 08/12/18 08/12/18 18:59 06:59 18:59 Intake Total 1000 / 1000 1000 / 1000 1000 / 1000 Balance 1000 / 1000 1000 / 1000 1000 / 1000 Weight 74.843 kg 74.843 kg Intake: IV 1000 / 1000 1000 / 1000 1000 / 1000 NS Inj 1,000 ML @ 170 mls/hr IV 1000 / 1000 1000 / 1000 .CONT .[id number] [facility] Rx#:[id number] KCl 20 mEq Premix Inj 20 meq In 0 / 0 100 ml @ 50 mls/hr IV.SIG Q2H PRN Rx#:[id number] NS Inj 1,000 ML @ Wide Open IV. 1000 / 1000 SIG BOLUS [facility] Rx#:[id number] Other: # Voids 3 Weight On Admission 74.843 kg <Jacob Muñiz - 08/12/18 17:25> Vital Signs 08/11/18 11:47 08/11/18 14:53 08/11/18 15:23 Temperature 98.0 F 98.0 F Pulse Rate 95 H 95 H 83 Respiratory Rate 20 22 20 Blood Pressure 137/58 L 137/58 L 116/83 Pulse Oximetry 98 98 99 08/11/18 16:50 08/11/18 18:15 08/11/18 18:18 Temperature Pulse Rate 80 80 Respiratory Rate 18 18 Blood Pressure 144/68 H 135/72 Pulse Oximetry 99 97 98 08/11/18 19:10 08/11/18 20:00 08/12/18 00:00 Temperature 98.4 F 97.7 F Pulse Rate 77 76 Respiratory Rate 16 16 Blood Pressure 158/76 H 132/75 Pulse Oximetry 98 98 96 08/12/18 08:00 Temperature 97.6 F Pulse Rate 68 Respiratory Rate 16 Blood Pressure 124/60 Pulse Oximetry 98 Intake & Output 10/22/18 10/23/18 10/23/18 18:59 06:59 18:59 Intake Total 999 / 1000 999 / 1000 1000 / 1000 Balance 999 / 999 999 / 999 1000 / 1000 Weight 74.843 kg 74.843 kg Intake: IV 999 / 1000 999 / 1000 1000 / 1000 NS Inj 1,000 ML @ 170 mls/hr IV 999 / 1000 999 / 1000 .CONT .[id number] [facility] Rx#:[id number] KCl 20 mEq Premix Inj 20 meq In 0 / 0 100 ml @ 50 mls/hr IV.SIG Q2H PRN Rx#:[id number] NS Inj 1,000 ML @ Wide Open IV. 999 / 999 SIG BOLUS [facility] Rx#:[id number] Other: # Voids 3 Weight On Admission 74.843 kg <Babita Valderrama Kortney - 08/12/18 11:32> Narrative: Constitutional: Alert, cooperative, oriented. No acute distress. Mood and affect appropriate. Respiratory: Lungs are clear to auscultation without rhonchi or wheezing. Cardiovascular: Regular rate and rhythm of heart without murmurs, gallops or rubs. Abdomen: Non-tender, non-distended, no masses, ascites or hepatosplenomegaly. No guarding or rebound Extremities: No visible deformities, no cyanosis, clubbing or edema. Pulses equal bilaterally. Musculoskeletal: No tenderness or swelling, normal range of motion without obvious weakness. Integumentary: Warm, dry. Psychiatric: Alert and oriented. Coherent speech. Verbalizes understanding of our discussions today. <LavelleYoangeorgie Sheets - 08/12/18 14:21> Assessment and Plan - Assessment (1) Type 2 diabetes mellitus Code(s): E11.9 - Type 2 diabetes mellitus without complications Status: Acute (2) Chest pain Code(s): R07.9 - Chest pain, unspecified Status: Resolved (3) Hypertension Code(s): I10 - Essential (primary) hypertension Status: Acute (4) Strep throat Code(s): J02.0 - Streptococcal pharyngitis Status: Acute (5) Nutrition, metabolism, and development symptoms Code(s): R63.8 - Other symptoms and signs concerning food and fluid intake Status: Acute <Jacob Muñiz - 10/23/18 17:25> (1) Type 2 diabetes mellitus Code(s): E11.9 - Type 2 diabetes mellitus without complications Status: Acute Plan: Patient is a known type II diabetic diagnosed approximately 3 months ago with poor glycemic control. She was recently admitted to the ICU for DKA and discharged on 07 August. Patient was also seen in the ED yesterday and left AMA after being diagnosed with DKA yet again. Today patient is hyperglycemic with an anion gap of 13. Patient found to have a beta hydroxybutyrate level of 2.19 but with a closed anion gap. Patient received bolus of 8 units of Novolin in the ED as well as 2- 1L boluses of normal saline. -Restart home Metformin 500mg PO BID and start NPH 70/30 12units AC breakfast and 8 units AC dinner -Fluids decreased from 170mls/hr to 100mls/hr -Monitor blood sugar -Diabetic education consult has been ordered -Continue to educate patient on diabetes (2) Chest pain Code(s): R07.9 - Chest pain, unspecified Status: Resolved Plan: Patient reports a several week history of chest pain related to eating and reproducible upon palpation. Possible causes for acute chest pain are ACS versus musculoskeletal pain/costochondritis versus esophageal spasms. Due to the proximity of her chest pain to her abdomen pancreatitis versus cholecystitis also on differential. -Resolved Workup: -Initial troponin less than 0.02 -Lipase 37 -Alkaline phosphatase 105 -Total bilirubin 0.6 -Toradol for pain (3) Hypertension Code(s): I10 - Essential (primary) hypertension Status: Acute Plan: -Continue home lisinopril 10mg (4) Strep throat Code(s): J02.0 - Streptococcal pharyngitis Status: Acute Plan: Patient's group A cultur from 08/05 negative. Will not need to continue Keflex. (5) Nutrition, metabolism, and development symptoms Code(s): R63.8 - Other symptoms and signs concerning food and fluid intake Status: Acute Plan: Fluids: NS 100mls/hr Electrolytes: Replete as needed Nutrition: Regular Diet DVT prophylaxis: Enoxaparin 40 mg subcu daily <Babita Valderrama T - 08/12/18 14:10> - Attending Attestation The exam, history, and the medical decision-making described in the above note were completed with the assistance of the resident physician. I reviewed and agree with the findings presented. I attest that I had a [id number] encounter with the patient on the same day, and personally performed and documented my assessment and findings in the medical record. <Jacob Muñiz - 08/12/18 17:25>
[2018-08-12 12:10] LABS: Anion Gap 9 meq/L (5-15); Blood Urea Nitrogen 8 mg/dL (7-18); Chloride 103 meq/L (98-107); Glomerular Filtration Rate Greater Than 89 mL/min (>89); Glucose,Random 428 mg/dL (74-106); Potassium 3.5 meq/L (3.5-5.1); Sodium 136 meq/L (136-145)
[2018-08-12] MEDS: Potassium Chloride Inj 40 MEQ in Sod Chloride 0.9% Inj 1,000 ML IV.CONT SCH (12:24)
[2018-08-12] MEDS: Lisinopril 10 MG Tablet PO SCH (15:33)
[2018-08-12 17:33] LABS: Calcium 8.2 mg/dL (8.5-10.1); Carbon Dioxide 25.3 meq/L (21.0-32.0); Potassium 4.4 meq/L (3.5-5.1)
[2018-08-12] MEDS ORDERED: Dextrose 50% in Water 50 ML Vial IV.PUSH PRN (19:37)
[2018-08-12] MEDS: Enoxaparin Inj 40 MG/0.4 ML Syringe SQ SCH (21:47)
[2018-08-12] MEDS: Ketorolac Inj 30 MG/ML (IVP) Vial IV.PUSH PRN (21:48)
[2018-08-12 23:16] LABS: Carbon Dioxide 25.3 meq/L (21.0-32.0); Potassium 3.7 meq/L (3.5-5.1)
[2018-08-13] MEDS: Insulin NovoLOG Aspart Correctional Sugar Inj SQ SCH ×5 (03:15→21:07)
[2018-08-13] MEDS: Potassium Chloride Inj 40 MEQ in Sod Chloride 0.9% Inj 1,000 ML IV.CONT SCH ×2 (04:35→09:17)
[2018-08-13 08:03] LABS: Hematocrit 36.3 % (35.0-46.0); Hemoglobin 12.9 gm/dL (11.6-15.3); Mean Corpuscular HGB Conc 35.5 % (32.0-36.0); Mean Corpuscular Hemoglobin 32.5 pg (27.0-34.0); Mean Corpuscular Volume 91.7 fL (80.0-100.0); Mean Platelet Volume 8.1 fL (7.0-11.0); Platelet Count 217 th/mm3 (150-450); Red Blood Count 3.95 mil/mm3 (4.00-5.30); Red Cell Distribution Width 12.4 % (11.6-17.2); White Blood Count 3.8 th/mm3 (4.0-11.0)
[2018-08-13 08:26] LABS: Anion Gap 9 meq/L (5-15); Blood Urea Nitrogen 10 mg/dL (7-18); Calcium 8.4 mg/dL (8.5-10.1); Carbon Dioxide 25.1 meq/L (21.0-32.0); Chloride 101 meq/L (98-107); Glomerular Filtration Rate Greater Than 89 mL/min (>89); Glucose,Random 353 mg/dL (74-106); Potassium 3.8 meq/L (3.5-5.1); Sodium 135 meq/L (136-145)
[2018-08-13] MEDS: Lisinopril 10 MG Tablet PO SCH (09:15)
--- NOTE | 2018-08-13 10:28 | P.PNFP ---
Subjective Interval history: No acute events overnight. Patient is doing well this morning. Patient had several episodes of hyperglycemia ranging from 252-495. Patient was placed on low-dose sliding scale and received a total of 14 units of aspart. Patient reports that she has doses of old insulin of Levemir at home. Discussed with patient about the potential dangers of using different types of insulin at home. Patient understood and agreed. No complaints this morning. Patient denies fevers, chest pain, shortness of breath, nausea vomiting, abdominal pain. Results - Labs Result diagrams: 08/13/18 07:35 08/13/18 07:35 Abnormal lab results 08/12/18 08/12/18 08/12/18 Range/Units 11:17 12:08 16:30 WBC (4.0-11.0) th/mm3 RBC (4.00-5.30) mil/mm3 Sodium 134 L (136-145) meq/L Estimated GFR 76 L (>89) mL/min POC Glucose 495 H* (68-110) mg/dl Random Glucose 428 H D 430 H (74-106) mg/dL Calcium 8.0 L 8.2 L (8.5-10.1) mg/dL 08/12/18 08/12/18 08/12/18 Range/Units 17:49 21:22 22:27 WBC (4.0-11.0) th/mm3 RBC (4.00-5.30) mil/mm3 Sodium 134 L (136-145) meq/L Estimated GFR 76 L (>89) mL/min POC Glucose 375 H 379 H (68-110) mg/dl Random Glucose 394 H (74-106) mg/dL Calcium 8.0 L (8.5-10.1) mg/dL 08/13/18 08/13/18 08/13/18 Range/Units 03:07 07:35 07:35 WBC 3.8 L (4.0-11.0) th/mm3 RBC 3.95 L (4.00-5.30) mil/mm3 Sodium 135 L (136-145) meq/L Estimated GFR (>89) mL/min POC Glucose 252 H (68-110) mg/dl Random Glucose 353 H (74-106) mg/dL Calcium 8.4 L (8.5-10.1) mg/dL 08/13/18 Range/Units 07:52 WBC (4.0-11.0) th/mm3 RBC (4.00-5.30) mil/mm3 Sodium (136-145) meq/L Estimated GFR (>89) mL/min POC Glucose 370 H (68-110) mg/dl Random Glucose (74-106) mg/dL Calcium (8.5-10.1) mg/dL Short CBC 08/13/18 Range/Units 07:35 WBC 3.8 L (4.0-11.0) th/mm3 Hgb 12.9 (11.6-15.3) gm/dL Hct 36.3 (35.0-46.0) % Plt Count 217 (150-450) th/mm3 BMP 08/12/18 08/12/18 08/12/18 11:17 16:30 22:27 Sodium 136 134 L 134 L Potassium 3.5 4.4 D 3.7 Chloride 103 100 100 Carbon Dioxide 24.0 25.3 25.3 BUN 8 9 13 Creatinine 0.66 0.79 0.79 Calcium 8.0 L 8.2 L 8.0 L 08/13/18 07:35 Sodium 135 L Potassium 3.8 Chloride 101 Carbon Dioxide 25.1 BUN 10 Creatinine 0.51 Calcium 8.4 L Physical Exam Vital signs: Vital Signs 08/12/18 12:00 08/12/18 16:00 08/12/18 19:47 Temperature 98.5 F 98.2 F Pulse Rate 70 74 86 Respiratory Rate 16 16 18 Blood Pressure 169/79 H 112/75 159/86 H Pulse Oximetry 99 98 96 08/12/18 20:00 08/13/18 00:00 08/13/18 00:29 Temperature 98.0 F Pulse Rate 73 70 Respiratory Rate 16 16 Blood Pressure 120/58 L Pulse Oximetry 97 08/13/18 04:00 08/13/18 04:15 08/13/18 08:00 Temperature 98.2 F 98.3 F Pulse Rate 85 68 68 Respiratory Rate 16 16 Blood Pressure 137/65 122/59 L Pulse Oximetry 98 96 08/13/18 08:53 Temperature Pulse Rate 63 Respiratory Rate 16 Blood Pressure Pulse Oximetry Intake & Output 08/12/18 08/13/18 08/13/18 18:59 06:59 18:59 Intake Total 1000 / 1000 1020 / 1020 1020 / 1020 Balance 1000 / 1000 1020 / 1020 1020 / 1020 Intake: IV 1000 / 1000 1020 / 1020 1020 / 1020 KCl Inj 40 MEQ In NS Inj 1,000 1020 / 1020 1020 / 1020 ML @ 100 mls/hr IV.CONT . [id number] [facility] Rx#:[id number] NS Inj 1,000 ML @ 170 mls/hr IV 1000 / 1000 .CONT .[id number] [facility] Rx#:[id number] Other: # Voids 10 # Bowel Movements 1 Narrative: Constitutional: Alert, cooperative, oriented. No acute distress. Mood and affect appropriate. Respiratory: Lungs are clear to auscultation without rhonchi or wheezing. Cardiovascular: Regular rate and rhythm of heart without murmurs, gallops or rubs. Abdomen: Non-tender, non-distended, no masses, ascites or hepatosplenomegaly. No guarding or rebound Extremities: No visible deformities, no cyanosis, clubbing or edema. Pulses equal bilaterally. Musculoskeletal: No tenderness or swelling, normal range of motion without obvious weakness. Integumentary: Warm, dry. Psychiatric: Alert and oriented. Coherent speech. Verbalizes understanding of our discussions today. Assessment and Plan - Assessment (1) Type 2 diabetes mellitus Code(s): E11.9 - Type 2 diabetes mellitus without complications Status: Acute Plan: Patient is a known type II diabetic diagnosed approximately 3 months ago with poor glycemic control. She was recently admitted to the ICU for DKA and discharged on 07 August. Patient was also seen in the ED yesterday and left AMA after being diagnosed with DKA yet again. Today patient is hyperglycemic with an anion gap of 13. Patient found to have a beta hydroxybutyrate level of 2.19 but with a closed anion gap. Patient received bolus of 8 units of Novolin in the ED as well as 2- 1L boluses of normal saline. -Patient's sugars past 24 hours this to 52-495. Patient received a total of 14 units of aspart. -Continue home Metformin 500mg PO BID and increase NPH 70/30 20units AC breakfast and 10 units AC dinner -Monitor blood sugar -Diabetic education consulted -Continue to educate patient on diabetes (2) Chest pain Code(s): R07.9 - Chest pain, unspecified Status: Resolved Plan: Patient reports a several week history of chest pain related to eating and reproducible upon palpation. Possible causes for acute chest pain are ACS versus musculoskeletal pain/costochondritis versus esophageal spasms. Due to the proximity of her chest pain to her abdomen pancreatitis versus cholecystitis also on differential. -Resolved Workup: -Initial troponin less than 0.02 -Lipase 37 -Alkaline phosphatase 105 -Total bilirubin 0.6 -Toradol for pain (3) Hypertension Code(s): I10 - Essential (primary) hypertension Status: Acute Plan: -Continue home lisinopril 10mg (4) Strep throat Code(s): J02.0 - Streptococcal pharyngitis Status: Acute Plan: Patient's group A cultur from 08/05 negative. Will not need to continue Keflex. (5) Nutrition, metabolism, and development symptoms Code(s): R63.8 - Other symptoms and signs concerning food and fluid intake Status: Acute Plan: Fluids: None Electrolytes: Replete as needed Nutrition: Diabetic diet DVT prophylaxis: Enoxaparin 40 mg subcu daily
[2018-08-13] MEDS: Ketorolac Inj 30 MG/ML (IVP) Vial IV.PUSH PRN (18:46)
[2018-08-13] MEDS: Enoxaparin Inj 40 MG/0.4 ML Syringe SQ SCH (21:08)
[2018-08-14] MEDS: Insulin NovoLOG Aspart Correctional Sugar Inj SQ SCH ×3 (03:37→13:29)
[2018-08-14 08:17] VITALS: RESP 16; TEMP 98.7
--- NOTE | 2018-08-14 09:18 | P.PNFP ---
Subjective Interval history: No acute events overnight. Patient lying in bed this morning. No complaints this morning. Patient denies chest pain, shortness of breath, fevers, nausea vomiting, abdominal pain. Blood sugars running from 246-370. She has received a total of 31 units of aspart in the past 24 hours. Results - Labs Result diagrams: 08/13/18 07:35 08/13/18 07:35 Abnormal lab results 08/13/18 08/13/18 08/13/18 Range/Units 12:49 16:44 18:28 POC Glucose 252 H 258 H 282 H (68-110) mg/dl 08/13/18 08/14/18 Range/Units 20:49 03:24 POC Glucose 378 H 246 H (68-110) mg/dl Physical Exam Vital signs: Vital Signs 08/13/18 11:47 08/13/18 16:00 08/13/18 19:49 Temperature 98.8 F 98.6 F 99.1 F Pulse Rate 76 71 73 Respiratory Rate 16 16 18 Blood Pressure 168/74 H 151/73 H 138/63 Pulse Oximetry 95 98 93 L 08/13/18 19:51 08/14/18 00:00 08/14/18 04:00 Temperature 97.7 F 97.7 F Pulse Rate 72 63 66 Respiratory Rate 19 20 Blood Pressure 102/52 L 111/55 L Pulse Oximetry 95 92 L 08/14/18 08:00 Temperature 98.7 F Pulse Rate 63 Respiratory Rate 16 Blood Pressure 127/59 L Pulse Oximetry 96 Intake & Output 08/13/18 08/14/18 08/14/18 18:59 06:59 18:59 Intake Total 3020 / 3020 Balance 3020 / 3020 Intake: IV 1520 / 1520 KCl Inj 40 MEQ In NS Inj 1,000 1520 / 1520 ML @ 100 mls/hr IV.CONT . [id number] [facility] Rx#:[id number] Oral 1500 / 1500 Narrative: Constitutional: Alert, cooperative, oriented. No acute distress. Mood and affect appropriate. Respiratory: Lungs are clear to auscultation without rhonchi or wheezing. Cardiovascular: Regular rate and rhythm of heart without murmurs, gallops or rubs. Abdomen: Non-tender, non-distended, no masses, ascites or hepatosplenomegaly. No guarding or rebound Extremities: No visible deformities, no cyanosis, clubbing or edema. Pulses equal bilaterally. Musculoskeletal: No tenderness or swelling, normal range of motion without obvious weakness. Integumentary: Warm, dry. Psychiatric: Alert and oriented. Coherent speech. Verbalizes understanding of our discussions today. Assessment and Plan - Assessment (1) Type 2 diabetes mellitus Code(s): E11.9 - Type 2 diabetes mellitus without complications Status: Acute Plan: Patient is a known type II diabetic diagnosed approximately 3 months ago with poor glycemic control. She was recently admitted to the ICU for DKA and discharged on 07 August. Patient was also seen in the ED yesterday and left AMA after being diagnosed with DKA yet again. Today patient is hyperglycemic with an anion gap of 13. Patient found to have a beta hydroxybutyrate level of 2.19 but with a closed anion gap. Patient received bolus of 8 units of Novolin in the ED as well as 2- 1L boluses of normal saline. -Patient's sugars past 24 hours this to 246-370. Patient received a total of 31units of aspart. -Continue home Metformin 500mg PO BID and NPH 70/30 20units AC breakfast and 10 units AC dinner -We will educate patient on titrating insulin by 2 units in the a.m. and 2 units at night if needed -Patient has PCP to follow up with -Monitor blood sugar -Diabetic education consulted -Continue to educate patient on diabetes (2) Chest pain Code(s): R07.9 - Chest pain, unspecified Status: Resolved Plan: Patient reports a several week history of chest pain related to eating and reproducible upon palpation. Possible causes for acute chest pain are ACS versus musculoskeletal pain/costochondritis versus esophageal spasms. Due to the proximity of her chest pain to her abdomen pancreatitis versus cholecystitis also on differential. -Resolved Workup: -Initial troponin less than 0.02 -Lipase 37 -Alkaline phosphatase 105 -Total bilirubin 0.6 -Toradol for pain (3) Hypertension Code(s): I10 - Essential (primary) hypertension Status: Acute Plan: -Continue home lisinopril 10mg (4) Strep throat Code(s): J02.0 - Streptococcal pharyngitis Status: Acute Plan: Patient's group A cultur from 08/05 negative. Will not need to continue Keflex. (5) Nutrition, metabolism, and development symptoms Code(s): R63.8 - Other symptoms and signs concerning food and fluid intake Status: Acute Plan: Fluids: None Electrolytes: Replete as needed Nutrition: Diabetic diet DVT prophylaxis: Enoxaparin 40 mg subcu daily
[2018-08-14] MEDS: Lisinopril 10 MG Tablet PO SCH (09:37)
[2018-08-14 12:12] VITALS: BP 117/56; PULSE 79; O2SAT 97
== END 2018-08-14 14:50 | disposition home or self-care (01) ==
LOC: NEPE 11:45 → NEDA 11:45 → NEPGCP 19:34 → NEDH 08-14 10:16 → NEPGCP 08-14 10:17
PROVIDERS: ADMIT Family Medicine; ATTEND Family Medicine